=== PATIENT | male | born 1965 | race Caucasian/White ===

== ENCOUNTER → 2020-11-17 | Outpatient (CLI) | payer OTHER ==
[2020-11-17 19:03] LABS: CHLORIDE 99 MMOL/L (98-107); POTASSIUM 3.8 MMOL/L (3.6-5.0); SODIUM 142 MMOL/L (135-145)
[2020-11-17 19:04] LABS: CALCIUM 8.8 MG/DL (8.5-10.1)
[2020-11-17 19:05] LABS: GLUCOSE 123 MG/DL (70-105)
[2020-11-17 19:07] LABS: CARBON DIOXIDE 30 MMOL/L (21-32)
[2020-11-17 19:09] LABS: CREATININE SERUM 1.24 MG/DL (0.60-1.30); GFR ESTIMATED > 60
[2020-11-17 19:10] LABS: BUN/CREATININE RATIO 12
[2020-11-17 19:11] LABS: MAGNESIUM 1.6 MG/DL (1.6-2.4)
== END ==
LOC: LABNPT 18:51
DX: I13.0 Hypertensive heart and chronic kidney disease with heart failure and stage 1 through stage 4 chronic kidney disease, or unspecified chronic kidney disease (principal); N18.9 Chronic kidney disease, unspecified; I50.9 Heart failure, unspecified
CPT/HCPCS: 80048; 83735; 83880

== ENCOUNTER 2020-11-23 21:43 | Emergency (ER) | payer MEDICARE, MEDICAID ==
[~2020-11-23] VITALS: Ht 170.2 cm; Wt 150.1 kg
[2020-11-23 21:53] VITALS: BP 149/94
--- NOTE | 2020-11-23 22:05 | ED General ---
General Chief Complaint: Coughing Up Blood Stated Complaint: COUGHING UP BLOOD Nursing Triage Note: PT AMBULATE TO ROOM FS01 WITH HOME O2 WITH C/O COUGHING UP BLOOD. PT HAS A TRACH SINCE MAR 222018. PT STATES HE WAS SUCTIONING AND MAY HAVE "GONE TOO FAR". PT PRESENTED A TISSUE WITH A SMALL AMOUNT OF BLOOD THAT PT STATES HE COUGHED UP THROUGH HIS MOUTH. Nursing Sepsis Screen: No Definite Risk History of Present Illness Date Seen by Provider: November 23, 2020 Time Seen by Provider: 22:01 Initial Comments Patient reports small amount of blood from his trach. Patient reports that he was suctioning his trach and thinks he may irritated with a little bit too far. He had a tissue with just a trace amount of blood on it that he had coughed up to his mouth. He cannot have any cough at this time. Has no shortness of breath or no active bleeding currently. Patient just wanted to be checked out because he was little bit scared. Allergies and Home Medications Patient Home Medication List Home Medication List Reviewed: Yes Review of Systems Review of Systems Constitutional: No chills, No fever EENTM: see HPI Respiratory: see HPI Cardiovascular: no symptoms reported Gastrointestinal: no symptoms reported Genitourinary: no symptoms reported Musculoskeletal: no symptoms reported Skin: no symptoms reported Past Gtrgfhp-Syjvfx-Htrawn Hx Past Med/Social Hx: Reviewed Nursing Past Med/Soc Hx Patient Social History Recent Infectious Disease Expo: No Physical Exam Vital Signs Vital Signs - First Documented 11/23/20 21:53 Temp 35.5 Pulse 91 Resp 17 B/P (MAP) 149/94 (112) Pulse Ox 97 O2 Delivery Trach Collar O2 Flow Rate 5.00 Capillary Refill : Less Than 3 Seconds Height, Weight, BMI Height: '" Weight: lbs. oz. kg; 51.00 BMI Method: General Appearance: No Apparent Distress, WD/WN Neck: Other (Tracheostomy in place with no active bleeding, normal exam) Respiratory: Lungs Clear, Normal Breath Sounds Cardiovascular: Regular Rate, Rhythm, No Edema Gastrointestinal: Non Tender, Soft Extremity: Normal Capillary Refill, Normal Range of Motion Neurologic/Psychiatric: Oriented x3, No Motor/Sensory Deficits, Normal Mood/Affect Progress/Results/Core Measures Suspected Sepsis Recent Fever Within 48 Hours: No Infection Criteria Present: None New/Unexplained Altered Menta: No Sepsis Screen: No Definite Risk SIRS Temperature: Pulse: 91 Respiratory Rate: 17 Blood Pressure 149 /94 Mean: 112 Results/Orders Vital Signs/I&O 11/23/20 11/23/20 21:53 22:00 Temp 35.5 Pulse 91 Resp 17 B/P (MAP) 149/94 (112) Pulse Ox 97 O2 Delivery Trach Collar Trach Collar O2 Flow Rate 5.00 5.00 Capillary Refill : Less Than 3 Seconds Blood Pressure Mean: 112 Progress Note : Progress Note Patient with no further episodes of bleeding or coughing while here in the ER. Patient with likely some tracheal irritation following deep suctioning. Patient was stable and discharged. Departure Impression Primary Impression: Hemorrhage from tracheostomy stoma Disposition: HOME, SELF-CARE Condition: Stable Departure-Patient Inst. Referrals: SELF,CARLOS SPRAGUE (PCP/Family) Primary Care Physician Add. Discharge Instructions: Follow-up with your primary care provider as needed Return to the ER as needed All discharge instructions reviewed with patient and/or family. Voiced understanding. BREANNA RAMÍREZ DO November 23, 2020 22:05
== END 2020-11-23 22:40 | disposition home or self-care (01) ==
LOC: EDUNIT# 21:43 → ER FS 21:44
DX: J95.01 Hemorrhage from tracheostomy stoma (principal); Z99.81 Dependence on supplemental oxygen
CPT/HCPCS: 99282

== ENCOUNTER 2021-01-11 15:57 | Emergency (ER) | payer MEDICARE, MEDICAID ==
[~2021-01-11] VITALS: Ht 170 cm; Wt 145.0 kg
--- NOTE | 2021-01-11 16:19 | ED Respiratory ---
General Chief Complaint: Catheter/Drain/Tube Problems Stated Complaint: HARD TO BREATHE DUE TO TRACH / FEELS LIKE ITS [facility] Nursing Triage Note: PT PRESENTS TO ED WITH COMPLAINTS OF TRACH IRITATION AFTER HAVING IT CHANGED YESTERDAY. Source: patient Exam Limitations: no limitations History of Present Illness Date Seen by Provider: Jan 11, 2021 Time Seen by Provider: 16:17 Initial Comments Patient has a chronic tracheostomy placed at in 2019. Home care came to [facility] where he resides yesterday to replace his trach. He feels like it is too tight. He has had both Covid vaccinations and denies any shortness of breath. He is coughing a bit more than usual Timing/Duration: just prior to arrival Severity: moderate Associated Symptoms: denies symptoms Allergies and Home Medications Allergies Coded Allergies: Penicillins (Verified Allergy, Unknown, 01/11/21) Sulfa (Sulfonamide Antibiotics) (Verified Allergy, Unknown, 01/11/21) acetaminophen (Verified Allergy, Unknown, 01/11/21) cefuroxime (Verified Allergy, Unknown, 01/11/21) cephalexin (Verified Allergy, Unknown, 01/11/21) hydrochlorothiazide (Verified Allergy, Unknown, 01/11/21) hydrocodone (Verified Allergy, Unknown, 01/11/21) naproxen (Verified Allergy, Unknown, 01/11/21) piroxicam (Verified Allergy, Unknown, 01/11/21) quinapril (Verified Allergy, Unknown, 01/11/21) Patient Home Medication List Home Medication List Reviewed: Yes Review of Systems Review of Systems Constitutional: see HPI EENTM: see HPI Respiratory: no symptoms reported Cardiovascular: no symptoms reported Genitourinary: no symptoms reported Musculoskeletal: no symptoms reported Skin: no symptoms reported Psychiatric/Neurological: No Symptoms Reported Hematologic/Lymphatic: No Symptoms Reported Immunological/Allergic: no symptoms reported Past Hwausos-Fmjdkf-Mzvumb Hx Patient Social History Tobacco Use?: Yes Smoking Status: Former Smoker Use of E-Cig and/or Vaping dev: No Substance use?: No Alcohol Use?: No Pt feels they are or have been: No Immunizations Up To Date First/Initial COVID19 Vaccinat: DECEMBER 23 COVID19 Vaccine Credentialing Coordinator: MODERNA Seasonal Allergies Seasonal Allergies: Yes Past Medical History Surgery/Hospitalization HX: SX-TRACH, PMH-DM2, HYPERLIPIDEMIA, BIPOLAR, DEPRESSION, ANXIETY, COPD, HYPERTENSION, HYPOKALEMIA, GERD, Surgeries: Yes (TRACH FEB 2019, RIGHT KIDNEY REMOVAL, L ANKLE, R ANKLE, ) Appendectomy, Gallbladder, Orthopedic, Tracheostomy Respiratory: Yes Asthma Cardiac: No Neurological: No Genitourinary: No Gastrointestinal: No Musculoskeletal: Yes Fractures Endocrine: Yes Diabetes, Insulin dep HEENT: No Cancer: No Psychosocial: Yes Anxiety, Depression Integumentary: No Blood Disorders: No Physical Exam Vital Signs - First Documented 01/11/21 16:03 Temp 36.4 Pulse 85 Resp 20 B/P (MAP) 185/108 (133) Pulse Ox 95 Capillary Refill : Less Than 3 Seconds Height: '" Weight: lbs. oz. kg; 50.00 BMI Method: General Appearance: WD/WN, no apparent distress Eyes: Bilateral Eye Normal Inspection, Bilateral Eye PERRL, Bilateral Eye EOMI HEENT: PERRL/EOMI, normal ENT inspection Neck: non-tender, full range of motion, other (Tracheostomy is midline slides in and out easily. This is an uncuffed trach tube. There is no surrounding erythema swelling or soft tissue emphysema. All I did was loosen the Velcro strap around his neck and he feels like it is back to normal.) Respiratory: no respiratory distress, no accessory muscle use Gastrointestinal: normal bowel sounds, non tender Neurologic/Psychiatric: alert, normal mood/affect, oriented x 3 Skin: normal color, warm/dry Progress/Results/Core Measures Suspected Sepsis SIRS Temperature: Pulse: 85 Respiratory Rate: 20 Blood Pressure 185 /108 Mean: 133 Results/Orders Vital Signs/I&O 01/11/21 16:03 Temp 36.4 Pulse 85 Resp 20 B/P (MAP) 185/108 (133) Pulse Ox 95 Capillary Refill : Less Than 3 Seconds Blood Pressure Mean: 133 Departure Impression Primary Impression: Tracheostomy care Disposition: 01 HOME, SELF-CARE Condition: Stable Departure-Patient Inst. Decision time for Depature: 16:18 Referrals: SELF,CARLOS SPRAGUE (PCP/Family) Primary Care Physician Patient Instructions: How to Care for a Tracheostomy BRITNEY SPENCER APRN Jan 11, 2021 16:19
--- NOTE | 2021-01-11 16:56 | Diagnostic Imaging Report ---
EXAMINATION: Soft tissue neck two views. HISTORY: Tracheostomy, neck irritation. COMPARISON: None available. FINDINGS: Tracheostomy device is present. There is abundant soft tissues about the neck. No soft tissue gas is seen. Tracheostomy is not visualized on the lateral due to overlying soft tissues. IMPRESSION: 1. Tracheostomy device is present without soft tissue gas. Dictated by: Dictated on workstation # [id number]
[2021-01-11 17:07] VITALS: BP 116/96
== END 2021-01-11 17:07 | disposition home or self-care (01) ==
LOC: EDUNIT# 15:57 → ER 16:00
DX: Z43.0 Encounter for attention to tracheostomy (principal); I10 Essential (primary) hypertension; E11.9 Type 2 diabetes mellitus without complications; J44.9 Chronic obstructive pulmonary disease, unspecified; Z87.891 Personal history of nicotine dependence
CPT/HCPCS: 70360

== ENCOUNTER 2021-02-24 18:51 | Emergency (ER) | payer MEDICARE, MEDICAID ==
[~2021-02-24] VITALS: Ht 170.1 cm; Wt 152.0 kg
--- OUTSIDE RECORDS SUMMARY | 2021-02-24 19:00 | XMS REPORT | Clinical Summary ---
Author Author [facility] Organization [facility] Address Unknown Phone Unavailable Care Team Providers Care [employer] Ax Consultant Name Role Phone Dov Farr MD Unavailable Pasha Sweet MD Unavailable Braden Covarrubias DO Unavailable Jerod Canales MD PCP Source Comments Some departments are not documenting in the electronic medical record. If you d o not see the information that you expected, contact Release of Information in [facility] Information Management department at [phone] for further assistan ce in locating additional records.[facility] Allergies Comments Active Allergy Reactions Severity Noted Date Tongue Twitching Aripiprazole SEE COMMENTS Low 02/04/2019 Allergen Mcr-Mwuvn-Cezzt ANAPHYLAXIS High 03/14 Bee Cefuroxime Axetil ANAPHYLAXIS High 03/14/2016 Cephalexin ANAPHYLAXIS High 03/14/2016 Piroxicam RASH Medium 03/14/2016 Haloperidol Lactate RASH Medium 02/04/2019 Hydrochlorothiazide HIVES Medium 03/14/2016 Hydrocodone ITCHING Low 03/14/2016 Latex RASH Medium 03/22/2019 Naproxen ANAPHYLAXIS High 03/14/2016 Penicillins ANAPHYLAXIS High 03/14/2016 Quinapril RASH Medium 03/14/2016 Sulfa (Sulfonamide ITCHING Low 03/14/2016 Antibiotics) Hydrocodone-Acetaminophen ITCHING Low 02/28 Medications End Date Status Medication Sig Dispensed Refills Start Date Active mirtazapine (REMERON) 15 Take 7.5 mg 0 mg tablet by mouth at bedtime daily. Active EPINEPHrine(+) (EPIPEN) 1 Inject 0.3 mg 0 mg/mL injection pen into the (2-Pack) muscle once as needed. Inject 0.3 mg (1 Pen) into thigh if needed for anaphylactic reaction. May repeat in 5-15 minutes if needed. Active rivaroxaban (XARELTO) 10 Take 10 mg by 0 mg tablet mouth at bedtime daily. Active fluticasone (FLONASE) 50 Apply 1 spray 0 mcg/actuation nasal spray to each nostril as directed daily. Shake bottle gently before using. Active lithium carbonate Take 300 mg 0 (ESKALITH) 150 mg capsule by mouth at bedtime daily. Take with food. Active pantoprazole DR Take 40 mg by 5 (PROTONIX) 40 mg tablet mouth daily. 9 Active tiZANidine (ZANAFLEX) 4 Take 4 mg by 8 mg tablet mouth at 9 bedtime daily. Active antiseptic mucus solvent 6-12 mL by 120 mL 3 0 120 mL Tracheal Tube 9 route every 1 hour as needed. Active albuterol-ipratropium Inhale 3 mL 360 each 1 09/29 (DUO-NEB) 0.5 mg-3 mg(2.5 solution by 0 mg base)/3 mL nebulizer nebulizer as solutionIndications: directed four Chronic obstructive times daily. pulmonary disease, unspecified COPD type (HCC) Active MYRBETRIQ 25 mg Take one 60 tablet 5 tabletIndications: tablet by 0 Overactive bladder mouth twice daily. Active LEVEMIR FLEXTOUCH U-100 15 Units 0 INSULN 100 unit/mL (3 mL) twice daily. 0 injection pen Active insulin aspart U-100 Inject 6 0 (NOVOLOG FLEXPEN U-100 Units under INSULIN) 100 unit/mL (3 the skin mL) injection PEN three times daily with meals. Sliding scale Active atorvastatin (LIPITOR) 20 Take 20 mg by 0 03/01 mg tablet mouth daily. 0 Active ALLERGY RELIEF Take 180 mg 0 (FEXOFENADINE) 180 mg by mouth 0 tablet daily. Active TRADJENTA 5 mg tablet Take 5 mg by 0 03/20/20 2 mouth daily. 0 Active metFORMIN-XR (GLUCOPHAGE TAKE 1 TABLET 0 03/20 XR) 500 mg extended BY MOUTH IN 0 release tablet THE EVENING WITH AN EVENING MEAL Active GAVILAX 17 gram/dose CONSUME 1/2 0 powder CAPFUL (9 0 GRAMS) BY MOUTH MIXED WITH JUICE OR WATER ONCE DAILY Active metoprolol XL (TOPROL XL) Take one 60 tablet 11 100 mg extended release tablet by 1 tablet mouth twice daily. Active acetaminophen SR Take 1,300 mg 0 (TYLENOL) 650 mg tablet by mouth at bedtime daily. Active dilTIAZem XR (DILACOR XR) Take 180 mg 0 180 mg capsule by mouth twice daily. Active duloxetine DR (CYMBALTA) Take 120 mg 0 60 mg capsule by mouth daily. Active doxepin (SINEQUAN) 50 mg Take 50 mg by 0 capsule mouth at bedtime daily. Active linaclotide (LINZESS) 145 Take 145 mcg 0 mcg capsule by mouth daily 30 minutes before breakfast. Active ondansetron (ZOFRAN) 4 mg Take 4 mg by 0 tablet mouth every 8 hours as needed for Nausea or Vomiting. Active multivit-min/folic/vit Take 1 tablet 0 K/lycop (MEN'S by mouth MULTIVITAMIN PO) daily. Active ascorbic acid (VITAMIN C) Take 500 mg 0 500 mg tablet by mouth daily. Active cholecalciferol (VITAMIN Take 1,000 0 D) 1,000 units tablet Units by mouth daily. Active guaiFENesin LA (MUCINEX) Take 600 mg 0 600 mg tablet by mouth twice daily. Active ALPRAZolam (XANAX) 0.5 mg Take 0.5 mg 0 tablet by mouth three times daily as needed for Anxiety. Active potassium chloride SR Take 20 mEq 0 (K-DUR) 10 mEq tablet by mouth three times daily. Take with a meal and a full glass of water. Active dulaglutide (TRULICITY) Inject 1.5 mg 0 1.5 mg/0.5 mL injection under the pen skin every 7 days. ~Mondays Active bumetanide (BUMEX) 2 mg Take 2 pills 72 tablet 1 0 tablet by mouth 1 twice daily for 3 days, then take 2 pills by mouth once daily in the morning thereafter. Active spironolactone Take one 180 tablet 3 (ALDACTONE) 25 mg tablet tablet by 1 mouth twice daily. Take with food. Active Problems Problem Noted Date Solitary kidney 11/13/2020 Acute on chronic diastolic heart failure 11/11/2020 Morbid obesity 11/11/2020 Pulmonary hypertension 11/11/2020 Fluid overload 11/08/2020 Chronic heart failure with preserved ejection fractio n (HFpEF) 09/29/2020 Essential hypertension 09/29/2020 Mixed dyslipidemia 09/29/2020 Overactive bladder 12/07/2019 Last Assessment & Plan: Formatting of this note might be differ ent from the original. Discussed overactive bladder treatment options with exploration of risks, benefits and potential adverse effects of the following: -- Voiding Diary: 2-3 days, when/what/h ow much -- Bladder diet, bladder training, pelv ic floor physical therapy -- Medications: anticholinergics and be ta-3 adrenergic agonist -- Percutaneous Tibial Nerve Stimuation (PTNS) -- Botox Injections to Bladder -- Sacral nerve stimulation Discussed PTNS, bladder Botox and sacra l nerve stimulation in detail. Discussed additional diagnostic evaluat ion via urodynamics but patient reports hesitancy related to his proced ure. He believes that he may had this procedure done by an outside facil ity and had severe discomfort. He wishes to speak with physician prior to scheduling his procedure. Plan for next available appointment for overacti ve bladder management with Dr. Gupta or Dr. Garcia. All question s answered no additional concerns at this time. Plan to continue to take Myrbetriq 50 m g. Tachycardia 11/13/2019 DM (diabetes mellitus) 11/13/2019 Localized edema 11/13/2019 S/P carpal tunnel release 11/13/2019 DDD (degenerative disc disease), lumbar 11/13/2019 S/p nephrectomy 11/13/2019 Chronic venous insufficiency of lower extremity 08/01 Secondary lymphedema 08/27/2019 Tracheal hemorrhage 07/01/2019 Insomnia 05/21/2019 Overview: Formatting of this note might be differ ent from the original. He has a long history of insomnia with good response to trazodone. L ast Assessment & Plan: Formatting of this note might be differ ent from the original. - Recently transitioned off of Trazodon e and switched to Doxepin by psychiatry per patient. Patient reports benefit from Doxepin, will continue for now. Discussed risks/benefits/SE/al ternatives. - Continue Xanax on PRN basis as patien t reports benefit. Discussed risks/benefits/SE/alternatives. - Educated on sleep hygiene Sleep apnea 03/22/2019 Morbid obesity with BMI of 50.0-59.9, adult 03/22/20 19 Overview: Formatting of this note might be differ ent from the original. He has a long history of obesity with i nability to lose weight. L ast Assessment & Plan: Formatting of this note might be differ ent from the original. - Body mass index is 52.31 kg/m. Educ ated on lifestyle modifications. Chronic respiratory failure 03/08/2019 Overview: Formatting of this note might be differ ent from the original. Secondary to multiple factors including hypoventilation syndrome morbid obesity obstructive sleep apnea and dec onditioning Nocturnal pulse oximetry dated 9 on 3 L oxygen showed oxygen desaturation below 88% for 8 seconds Last Assessment & Plan: Formatting of this note might be differ ent from the original. Patient is interested in decannulation. He has never been capped before, he uses a speaking valve. We discussed abo ut the severity of his chronic respiratory failure and sleep apnea, an d that he would need to cap his trach first, if he is able to tolerate that for a while atleast for a few days, then we can talk about decannulat ion. Intolerance of continuous positive airway pressure (C PAP) ventilation 02/04/2019 Class 3 severe obesity with serious comorbidity and b celina mass index (BMI) 02/04/2019 of 45.0 to 49.9 in adult Last Assessment & Plan: Formatting of this note might be differ ent from the original. Weight loss strongly encouraged as fpc option. The benefits of weight loss in the setting of sleep apnea were discussed. He also likely has chronic respiratory failure secondary t o OHS. PAYAM (obstructive sleep apnea) 03/14/2016 Overview: Formatting of this note might be differ ent from the original. PSG 04/10/2016 AHI 79.6/ REM 0/ Supine 0 Oxygenation low 76, below 88% 99.6 susan natali CPAP intolerant Tracheostomy scheduled 03/22/2019 L ast Assessment & Plan: Formatting of this note might be differ ent from the original. If he does consider decanulation, he wi ll need to be put back a CPAP, for this he will need another sleep study. He is currently not decided as to what he wants to do, he will decide and let us know. Advised in person follow up in 3 months Major depressive disorder 03/14/2016 Overview: Formatting of this note might be differ ent from the original. He has a long history of depression and was just discharged from [place] inpatient unit in [facility]. L ast Assessment & Plan: Formatting of this note might be differ ent from the original. He will continue his Cymbalta and Trazo done at current doses. He is not suicidal at this time. Chronic kidney disease Encounters Care Team Description Date Type Specialty Karin Madsen MD Das Ireland, Monisha, MBBS PAYAM (obstructive sleep apnea) (Primary D x); Chronic respiratory failure with hypoxia and hypercapnia (HCC) 02/13/2021 Office Visit Pulmonology Telehealth Pasha Sweet MD Other 12/29/2020 Telephone Otolaryngology Karin Madsen MD Other 12/05/2020 Telephone Pulmonology Low Conn DO New Patient 11/29/2020 Telephone Oncology Pavan Dia LPN Medication Refill 11/29/2020 Refill Cardiology Karin Clemens, PSYCHOLOGY INSTRUCTOR-MEDICAL PARASITOLOGIST CHF (follow up) 2020 Office Visit Cardiology Telehealth from Last 3 Months Immunizations Name Administration Dates Next Due Flu Vaccine =>6 Months 03/25/2019 Quadrivalent PF Surgical History Surgery Date Site/Laterality Comments HX CHOLECYSTECTOMY 06/30/2003 - 06/29/2004 NEPHRECTOMY 06/30/1980 - Right 06/29/1981 HX APPENDECTOMY 06/30/1980 - 06/29/1981 TONSILLECTOMY 06/30/1972 - 06/29/1973 ANKLE FUSION Bilateral hardware insert ed left ankle/right ankle bone spur ANKLE SURGERY Bilateral SHOULDER ARTHROPLASTY 06/30/2010 - Left 06/29/2011 COLONOSCOPY 06/30/2018 - 06/29/2019 TRACHEOSTOMY 03/22/2019 Neck/N/A TRACHEOSTOMY FE NESTRATION PROCEDURE WITH SKIN FLAP performed by Pasha Sweet Jr., MD at [facility] OR/Periop Medical History Medical History Date Comments Hypertension Pneumonia Blood clot in vein Both Legs PAYAM (obstructive sleep apnea) no CPAP cannot tolera te On supplemental oxygen by nasal 2-2.5L/ NC during t he day and 3L/NC at HS cannula Anticoagulated Xarelto Asthma Chronic respiratory failure (HCC) DM (diabetes mellitus) ([facility]) 2017 PONV (postoperative nausea and vomiting) Acid reflux Anxiety and depression Chronic kidney disease Rash of body abdominal rash Heart palpitations Edema of both lower extremities due to peripheral venous insufficiency DVT of leg (deep venous thrombosis) 2014 JAZZMINE ([facility]) BMI 50.0-59.9, adult ([facility]) Tobacco abuse Former tobacco use Tachycardia 11/13/2019 Localized edema 11/13/2019 S/P carpal tunnel release 11/13/2019 DDD (degenerative disc disease), 11/13/2019 lumbar S/p nephrectomy 11/13/2019 Family History Medical History Relation Name Comments Unknown to Patient Father Diabetes Mother Hypertension Mother Unknown to Patient Mother None Reported Sister Relation Name Status Comments Father Mother Sister Social History Date Tobacco Use Types Packs/Day Years Used Former Smoker Cigarettes 0.5 5 Smokeless Tobacco: Never Used Tobacco Cessation: Counseling Given: Yes Comments Alcohol Use Standard Drinks/Week No 0 (1 standard drink = 0.6 o z pure alcohol) Sex Assigned at Date Recorded Male 10/14/2019 10:40 AM CDT Last Filed Vital Signs Reading Time Taken Comments Vital Sign 142/90 11/11/2020 11:04 AM CDT pt sitting up, R N notified. Blood Pressure 81 11/11/2020 11:04 AM CDT Pulse 36.7 C (98 F) 11/11/2020 11:04 AM CDT Temperature 18 05/30/2020 3:50 PM QUALITY ASSURANCE TESTER Respiratory Rate 96% 11/11/2020 12:45 PM CDT Oxygen Saturation - - Inhaled Oxygen Concentration 153.3 kg (338 lb) 02/13/2021 7:40 AM CDT Weight 170.2 cm (5' 7") 02/13/2021 7:40 AM CDT Height 52.94 02/13/2021 7:40 AM CDT Body Mass Index Plan of Treatment Health Maintenance Due Date Last Done Comments MEDICARE ANNUAL WELLNESS 1965 VISIT HIV SCREENING 11/27/1982 DILATED EYE EXAM 11/27/1985 DTAP/TDAP VACCINES (1 - 11/27/1985 Tdap) FOOT EXAM 11/27/1985 HBA1C 11/27/1985 HEPATITIS C SCREENING 11/27/1985 MICROALBUMIN 11/27/1985 PHYSICAL (COMPREHENSIVE) 11/27/1985 EXAM PNEUMONIA VACCINE (DM) 11/27/1985 COLORECTAL CANCER 11/27/2017 SCREENING SHINGLES RECOMBINANT 11/27/2017 VACCINE (1 of 2) INFLUENZA VACCINE 03/30/2021 03/25/2019, 06/15/2009 Goals Goal Patient Associated Recent Progress Patient-Stat Aut hor Goal Type Problems ed? Weight Loss Exercise Yes Delaney Jauregui, RN Note: "Lose some weight and get more healthy" [facility] No Cristina Jansen, DANNY Note: Get home to my dog Results Not on filefrom Last 3 Months Insurance Type Payer Benefit Subscriber ID Effective Phone Address Plan / Dates Group Medicare MEDICARE MEDICARE [id number] 2005- PART A AND Present B Medicaid [employer] [place] [employer] [id number] 2019-P [facility] BILLING HOSPICE/HO [id number] 03/22/2019 - ME Present HEALTH/SNF /RETIREMENT Advance Directives Patient Fur Sorter Explanation Type Date Recorded DPOA Advance 03/12/2019 11:01 AM Directive/DPOA Date Inactivated Comments Code Status Date Activated 11/11/2020 8:50 PM Full Code 11/08/2020 2:52 PM Provider has discussed Code Status No, discussion no t w/Patient or Family? necessary based on Dx 11/08/2020 2:52 PM Full Code 11/08/2020 9:24 AM Provider has discussed Code Status No, discussion no t w/Patient or Family? necessary based on Dx 03/26/2019 8:35 PM Full Code 03/22/2019 2:23 PM Provider has discussed Code Status No, discussion no t w/Patient or Family? necessary based on Dx
--- OUTSIDE RECORDS SUMMARY | 2021-02-24 19:00 | XMS REPORT | Clinical Summary ---
Author Author [facility] Address Unknown Phone Unavailable Care Team Providers Care Sports Announcer Name Role Phone Price Vo MD PCP Allergies Comments Active Allergy Reactions Severity Noted Date Bee Venom Anaphylaxis High 08/18/2013 Cefuroxime Rash Low 08/18/2013 Cephalexin Rash Low 02/10/2015 Piroxicam Rash Low 08/18/2013 Hydrochlorothiazide Rash Low 08/18/2013 Naproxen Rash Low 08/18/2013 Penicillins Anaphylaxis High 08/18/2013 Quinapril-Hydrochlorothia Rash Low 07/31 zide Sulfa Antibiotics Rash Low 08/18/2013 Hydrocodone-Acetaminophen Rash Low 07/31 Medications End Date Status Medication Sig Dispensed Refills Start Date Active carvedilol (COREG) 25 MG Take 6.25 mg 0 tablet by mouth 2 (two) times daily with meals. Active furosemide (LASIX) 80 MG Take 80 mg by 0 tablet mouth 2 (two) times daily. Morning and Noon Active potassium chloride SA Take 20 mEq 0 (K-DUR,KLOR-CON) 20 MEQ by mouth 3 tablet (three) times daily. Breakfast, lunch, dinner Active nitroglycerin Place 0.4 mg 0 (NITROQUICK) 0.4 MG SL under the tablet tongue every 5 (five) minutes as needed. Active omeprazole (PRILOSEC) 20 Take 20 mg by 0 MG capsule mouth 2 (two) times daily. Active Pediatric Take 1 tablet 0 Qsgqyyvu-Wqupocrf-R by mouth (MULTIVITAMIN/IRON) CHEW daily. Active colesevelam (WELCHOL) 625 Take 625 mg 0 MG tablet by mouth 2 (two) times daily with meals. Active EPINEPHrine (EPIPEN) 0.3 Inject 0.3 mg 0 MG/0.3 ML SOAJ injection into the muscle once. Active traZODone (DESYREL) 100 Take 2 60 tablet 0 MG tabletIndications: tablets (200 4 Anxiety Disorder, mg total) by Insomnia mouth nightly. Indications: Anxiety Disorder, Trouble Sleeping Additional Information Patient taking differently: 300 mg Oral BEDTIME, Indications: Anxiety Disorder, Insomnia, Reported on 02/10/2015 Active duloxetine (CYMBALTA) 60 Take 60 mg by 0 MG capsule mouth daily. Active FLUoxetine (PROZAC) 20 MG Take 20 mg by 0 capsule mouth daily. Active ALPRAZolam (XANAX) 0.25 Take 0.25 mg 0 MG tabletIndications: by mouth 3 Agitation, Anxiety, (three) times Insomnia daily. Scheduled for 0900, 1500, 2100. Indications: Agitation, Feeling Anxious, Trouble Sleeping Active fluticasone (FLONASE) 50 1 spray by 0 MCG/ACT nasal Each Nare sprayIndications: route 2 (two) Seasonal Allergic times daily. Rhinitis Indications: Hayfever Active loratadine (CLARITIN) 10 Take 10 mg by 0 MG tabletIndications: mouth daily. Seasonal Allergic Indications: Rhinitis Hayfever Active ARIPiprazole (ABILIFY) 5 Take 1 tablet 30 tablet 0 MG tabletIndications: (5 mg total) 5 Major Depressive Disorder by mouth daily. Indications: Major Depressive Disorder Active prazosin (MINIPRESS) 2 MG Take 1 30 capsule 0 capsuleIndications: capsule (2 mg 5 suppress nightmares total) by mouth nightly. Indications: suppress nightmares Active Problems Problem Noted Date Mood disorder 03/02/2014 Severe major depression, single episode, with psychot ic features, 08/20/2013 mood-incongruent Resolved Problems Problem Noted Date Resolved Date Psychosis 03/03/2014 03/07/2014 Suicidal ideation 08/19/2013 03/07/2014 Mood disorder 08/18/2013 08/20/2013 Immunizations Name Administration Dates Next Due Influenza IIV3 PFree 02/28/2013 Pneumococcal 02/28/2013 Polysaccharide (23-valent) Social History Date Tobacco Use Types Packs/Day Years Used Former Smoker Smokeless Tobacco: Never Used Comments Alcohol Use Standard Drinks/Week occasionally No 0 (1 standard drink = 0.6 o z pure alcohol) Control Partners Comments Sexually Active Never Sex Assigned at Date Recorded Not on file Last Filed Vital Signs Reading Time Taken Comments Vital Sign 120/82 02/13/2015 1:56 PM CDT Blood Pressure 99 02/13/2015 1:56 PM CDT Pulse 37.2 C (99 F) 02/13/2015 1:56 PM CDT Temperature 20 02/13/2015 1:56 PM CDT Respiratory Rate 97% 02/12/2015 3:00 PM CDT Oxygen Saturation - - Inhaled Oxygen Concentration 138.8 kg (306 lb) 02/10/2015 8:43 PM CDT Weight 170.2 cm (5' 7") 02/10/2015 8:43 PM CDT Height 47.93 02/10/2015 8:43 PM CDT Body Mass Index Plan of Treatment Health Maintenance Due Date Last Done Comments COVID-19 Vaccine (1) 1979 Annual Wellness Visit 11/27/1985 Hepatitis C Screening 11/27/1985 DTaP,Tdap,and Td Vaccines 11/27/1986 (1 - Tdap) MMR Vaccines-Adult 11/27/1986 Colon Cancer Screening 11/27/2017 Zoster Vaccine (1 of 2) 11/27/2017 Influenza Vaccine (#1) 2021 02/28/2013 Pneumo-Vaccine: 65+Yrs (1 11/27/2032 02/28/2013 of 1 - PPSV23) Pneumo-Vaccine: Peds (0-5 Aged Out 02/28/2013 No l onger eligible based on patient's age to Yrs) & At-Risk Patients complete this topic (6-64 Yrs) HIB Vaccines Aged Out No longer eligible based on patient's age to complete this topic IPV Vaccines Aged Out No longer eligible based on patient's age to complete this topic Meningococcal Vaccine Aged Out No longer eligib le based on patient's age to complete this topic Rotavirus Vaccines Aged Out No longer eligible based on patient's age to complete this topic Results Not on filefrom Last 3 Months Insurance Type Payer Benefit Subscriber ID Effective Phone Address Plan / Dates Group Medicare MEDICARE MEDICARE [id number] 2005- [address] Present [address] [place] [address] Advance Directives For more information, please contact: [phone] Date Inactivated Comments Code Status Date Activated 02/13/2015 3:14 PM Full Code 02/10/2015 10:56 PM 03/07/2014 1:44 PM Full Code 03/02/2014 11:57 PM 08/23/2013 4:24 PM Full Code 08/18/2013 9:26 PM Care Teams Start Date End Date Sports Announcer Relationship Specialty 08/18/13 Price Vo MD PCP - General [address] [place] [id number]
--- OUTSIDE RECORDS SUMMARY | 2021-02-24 19:00 | XMS REPORT | Encounter Summary ---
Author Author [facility] Organization [facility] Address Unknown Phone Unavailable Care Team Providers Care Ortho Assistant Name Role Phone Dov Farr MD Unavailable Pasha Sweet MD Unavailable Braden Covarrubias DO Unavailable Jerod Canales MD PCP Reason for Visit * Reason Comments Sleep Apnea Encounter Details Care Team Description Date Type Department Karin Madsen MD [address] [facility] Lvl 1 A-B [place], [place] [id number] Gaby Kelley MBBS [address] [place], [place] [id number] PAYAM (obstructive sleep apnea) (Primary D x); Chronic respiratory failure with hypoxia and hypercapnia (HCC) 02/13/2021 Office Visit Pulmonology: Shimon menon, [facility] [address], [address] [address] Social History Date Tobacco Use Types Packs/Day Years Used Former Smoker Cigarettes 0.5 5 Smokeless Tobacco: Never Used Comments Alcohol Use Standard Drinks/Week No 0 (1 standard drink = 0.6 o z pure alcohol) Sex Assigned at Date Recorded Male 10/14/2019 10:40 AM CDT documented as of this encounter Last Filed Vital Signs Reading Time Taken Comments Vital Sign - - Blood Pressure - - Pulse - - Temperature - - Respiratory Rate - - Oxygen Saturation - - Inhaled Oxygen Concentration 153.3 kg (338 lb) 02/13/2021 7:40 AM CDT Weight 170.2 cm (5' 7") 02/13/2021 7:40 AM CDT Height 52.94 02/13/2021 7:40 AM CDT Body Mass Index documented in this encounter Functional Status Date of Assessment Functional Status Response 11/02/2020 Does the patient have a hearing impairment: No 11/02/2020 Does the patient have a visual impairment: Yes 11/02/2020 Does the patient have impaired ambulation: Yes 11/02/2020 Does the patient have an activity of daily living No (ADL) impairment: 11/02/2020 Does the patient have an instrumental activity of No daily living (IADL) impairment: Date of Assessment Cognitive Status Response 11/02/2020 Does the patient have a cognitive impairment: No documented as of this encounter Progress Notes * Gaby Kelley MBBS - 02/13/2021 9:00 AM CDT Telehealth Visit Note Date of Service: 02/13/2021 Subjective: Obtained patient's verbal consent to treat them and their agreement to [facility] policy and NPP via this telehealth visit during the Coronavirus Public [facility] Emergency Conor Juan David Robbins is a 55 y.o. male. History of Present Illness Mr. Robbins is a 54 yo M with PMH HTN, HLD, CKD, DM2, asthma, COPD, chronic respir atory failure, DVT on AC, anxiety, depression, acid reflux, former tobacco use, severe PAYAM s/p tracheostomy, insomnia, DDD, morbid obesity who presents to [facility] for PAYAM and chronic respiratory failure follow up. He is here to discuss decannulation due to home situation and that he wants to b e able to go out and do things and not be attached to his machine. No recent bronchitis Currently using 4-5 L O2 through trach mask. Does have a chronic cough with clear phlegm. He states that he uses speaking valve but has never capped his trach. Review of Systems Constitutional: Positive for fatigue. HENT: Negative. Respiratory: Positive for cough and shortness of breath. Cardiovascular: Negative. Musculoskeletal: Positive for arthralgias. Skin: Negative. Neurological: Negative. Psychiatric/Behavioral: Negative. Objective: acetaminophen SR (TYLENOL) 650 mg tablet Take 1,300 mg by mouth at bedtime d aily. albuterol-ipratropium (DUO-NEB) 0.5 mg-3 mg(2.5 mg base)/3 mL nebulizer solu tion Inhale 3 mL solution by nebulizer as directed four times daily. ALLERGY RELIEF (FEXOFENADINE) 180 mg tablet Take 180 mg by mouth daily. ALPRAZolam (XANAX) 0.5 mg tablet Take 0.5 mg by mouth three times daily as n eeded for Anxiety. antiseptic mucus solvent 120 mL 6-12 mL by Tracheal Tube route every 1 hour as needed. ascorbic acid (VITAMIN C) 500 mg tablet Take 500 mg by mouth daily. atorvastatin (LIPITOR) 20 mg tablet Take 20 mg by mouth daily. bumetanide (BUMEX) 2 mg tablet Take 2 pills by mouth twice daily for 3 days, then take 2 pills by mouth once daily in the morning thereafter. cholecalciferol (VITAMIN D) 1,000 units tablet Take 1,000 Units by mouth christina ly. dilTIAZem XR (DILACOR XR) 180 mg capsule Take 180 mg by mouth twice daily. doxepin (SINEQUAN) 50 mg capsule Take 50 mg by mouth at bedtime daily. dulaglutide (TRULICITY) 1.5 mg/0.5 mL injection pen Inject 1.5 mg under the skin every 7 days. ~Mondays duloxetine DR (CYMBALTA) 60 mg capsule Take 120 mg by mouth daily. EPINEPHrine(+) (EPIPEN) 1 mg/mL injection pen (2-Pack) Inject 0.3 mg into th e muscle once as needed. Inject 0.3 mg (1 Pen) into thigh if needed for anaphyla ctic reaction. May repeat in 5-15 minutes if needed. fluticasone (FLONASE) 50 mcg/actuation nasal spray Apply 1 spray to each nos tril as directed daily. Shake bottle gently before using. GAVILAX 17 gram/dose powder CONSUME 1/2 CAPFUL (9 GRAMS) BY MOUTH MIXED WITH JUICE OR WATER ONCE DAILY guaiFENesin LA (MUCINEX) 600 mg tablet Take 600 mg by mouth twice daily. insulin aspart U-100 (NOVOLOG FLEXPEN U-100 INSULIN) 100 unit/mL (3 mL) inje ction PEN Inject 6 Units under the skin three times daily with meals. Sliding sc mor LEVEMIR FLEXTOUCH U-100 INSULN 100 unit/mL (3 mL) injection pen 15 Units twi ce daily. linaclotide (LINZESS) 145 mcg capsule Take 145 mcg by mouth daily 30 minutes before breakfast. lithium carbonate (ESKALITH) 150 mg capsule Take 300 mg by mouth at bedtime daily. Take with food. metFORMIN-XR (GLUCOPHAGE XR) 500 mg extended release tablet TAKE 1 TABLET BY MOUTH IN THE EVENING WITH AN EVENING MEAL metoprolol XL (TOPROL XL) 100 mg extended release tablet Take one tablet by mouth twice daily. mirtazapine (REMERON) 15 mg tablet Take 7.5 mg by mouth at bedtime daily. multivit-min/folic/vit K/lycop (MEN'S MULTIVITAMIN PO) Take 1 tablet by mout h daily. MYRBETRIQ 25 mg tablet Take one tablet by mouth twice daily. ondansetron (ZOFRAN) 4 mg tablet Take 4 mg by mouth every 8 hours as needed for Nausea or Vomiting. pantoprazole DR (PROTONIX) 40 mg tablet Take 40 mg by mouth daily. potassium chloride SR (K-DUR) 10 mEq tablet Take 20 mEq by mouth three times daily. Take with a meal and a full glass of water. rivaroxaban (XARELTO) 10 mg tablet Take 10 mg by mouth at bedtime daily. spironolactone (ALDACTONE) 25 mg tablet Take one tablet by mouth twice daily . Take with food. tiZANidine (ZANAFLEX) 4 mg tablet Take 4 mg by mouth at bedtime daily. TRADJENTA 5 mg tablet Take 5 mg by mouth daily. Vitals: 02/13/21 0740 Weight: (!) 153.3 kg (338 lb) Height: 170.2 cm (67") PainSc: Zero Body mass index is 52.94 kg/m. Telehealth Patient Reported Vitals Row Name 02/13/21 0740 Pain Score Zero Physical Exam Not done due to this being a tele visit Assessment and Plan: Problem Chronic Respiratory Failure (Hcc) Secondary to multiple factors including hypoventilation syndrome morbid obesity obstructive sleep apnea and deconditioning Nocturnal pulse oximetry dated 05/07/2019 on 3 L oxygen showed oxygen desaturatio n below 88% for 8 seconds Payam (Obstructive Sleep Apnea) PSG 04/10/2016 AHI 79.6/ REM 0/ Supine 0 Oxygenation low 76, below 88% 99.6 minutes CPAP intolerant Tracheostomy scheduled 03/22/2019 Chronic respiratory failure (HCC) Patient is interested in decannulation. He has never been capped before, he uses a speaking valve. We discussed about the severity of his chronic respiratory fa ilure and sleep apnea, and that he would need to cap his trach first, if he is a ble to tolerate that for a while atleast for a few days, then we can talk about decannulation. PAYAM (obstructive sleep apnea) If he does consider decanulation, he will need to be put back a CPAP, for this h e will need another sleep study. He is currently not decided as to what he wants to do, he will decide and let us know. Advised in person follow up in 3 months 30 minutes spent on this patient's encounter with counseling and coordination of care taking >50% of the visit. Gaby Sahni Sleep Fellow ATTESTATION I personally performed the zarate portions of the E/M visit, discussed case with Dr Jorge A Sahni and concur with documentation of history, physical exam, assessment, a nd treatment plan unless otherwise noted. I again explained to him he is not a candidate for decannulation given he has severe PAYAM and remains CPAP intolerant. Staff name: Dov Farr MD Date: 02/13/2021 * Jesica Johnson MA - 02/13/2021 9:00 AM CDT Did patient read financial policy, consent to treat, and notice of privacy pract ices? Yes Does the patient give verbal consent to each policy? Yes Does the patient have any vitals to report? Yes Weight Vitals charted in O2? Yes Is the patient in pain? 0 = No pain Screening questions completed? Yes Is the patient able to acces the [employer] message with the start visit link? Yes Is patient in "virtual waiting room" No documented in this encounter Plan of Treatment Not on filedocumented as of this encounter Goals Goal Patient Associated Recent Progress Patient-Stat Aut hor Goal Type Problems ed? Weight Loss Exercise Yes Delaney Jauregui, RN Note: "Lose some weight and get more healthy" [facility] No Cristina Jansen RN Note: Get home to my dog documented as of this encounter Visit Diagnoses Diagnosis PAYAM (obstructive sleep apnea) - Primary Obstructive sleep apnea (adult) (pediat christian) Chronic respiratory failure with hypoxi a and hypercapnia (HCC) * Assessment & Plan Note - Gaby Kelley MBBS - 02/13/2021 9:34 AM CDT Associated Problem(s): PAYAM (obstructive sleep apnea) If he does consider decanulation, he will need to be put back a CPAP, for this h e will need another sleep study. He is currently not decided as to what he wants to do, he will decide and let us know. Advised in person follow up in 3 months * Assessment & Plan Note - Gaby Kelley MBBS - 02/13/2021 9:31 AM CDT Associated Problem(s): Chronic respiratory failure (HCC) Patient is interested in decannulation. He has never been capped before, he uses a speaking valve. We discussed about the severity of his chronic respiratory fa ilure and sleep apnea, and that he would need to cap his trach first, if he is a ble to tolerate that for a while atleast for a few days, then we can talk about decannulation. documented in this encounter Additional Health Concerns Assessment Noted Time PHQ-9 Depression Total Score: 0 03/08/2019 12:35 PM CDT A fall risk assessment has been completed for the pat ient 02/13/2021 7:43 AM CDT A Body Mass Index follow-up plan has been documented for the patient 08/04/2020 11:41 AM SALES TRADER PHQ-2 Depression Total Score: 2 02/13/2021 7:42 AM CDT documented as of this encounter
--- OUTSIDE RECORDS SUMMARY | 2021-02-24 19:00 | XMS REPORT | Clinical Summary ---
Author Author [facility] Organization [facility] Address Unknown Phone Unavailable Care Team Providers Care Provider Engagement Executive Name Role Phone Jasen Bro MD PCP Allergies Not on File Medications Not on file Active Problems Not on file Social History Date Tobacco Use Types Packs/Day Years Used Never Assessed Sex Assigned at Date Recorded Not on file Last Filed Vital Signs Not on file Plan of Treatment Not on file Results Not on filefrom Last 3 Months Insurance Type Payer Benefit Subscriber ID Effective Phone Address Plan / Dates Group Medicare MEDICARE MEDICARE [id number] 2018-P [place] [address] [place] [address] [place], [place] CIGNA CIGNA [id number] 2018-P [place] MEDICA[place] MANAGED CARE [employer] [id number] 2018 -P ([place]) [facility]
--- OUTSIDE RECORDS SUMMARY | 2021-02-24 19:00 | XMS REPORT | Encounter Summary ---
Author Author [facility] Organization [facility] Address Unknown Phone Unavailable Care Team Providers Care Historian Dramatic Arts Name Role Phone Dov Farr MD Unavailable Pasha Sweet MD Unavailable Braden Covarrubias DO Unavailable Jerod Canales MD PCP Reason for Visit * Reason Onset Date Comments Other 12/29/2020 Encounter Details Care Team Description Date [place] [id number] [address] [facility] [address] [place] [address] Other 12/29/2020 Telephone Otolaryngology: [address] [place] [address] Social History Date Tobacco Use Types Packs/Day Years Used Former Smoker Cigarettes 0.5 5 Smokeless Tobacco: Never Used Drinks/Week oz/Week Comments Alcohol Use 0 Standard drinks or equivalent 0.0 No Sex Assigned at Date Recorded Male 10/14/2019 10:40 AM CDT documented as of this encounter Functional Status Date of Assessment [...] impairment: No documented as of this encounter Miscellaneous Notes * Telephone Encounter - Mimi Hernandez LPN - 01/02/2021 11:[address] Sweet standard protocol, this nurse contacted patient's home health nurse at [facility] and provided continued orders for Tracheostomy changes every 3 months or PRN for complications. * Telephone Encounter - Ariel Yost - 12/29/2020 8:56 AM CDT Calling to reach nurse. Needing orders for home health agency. And how often to change trach. documented in this encounter Plan of Treatment Not on filedocumented as of this encounter Goals Goal Patient Associated Recent Progress Patient-Stat Aut hor Goal Type Problems ed? Weight Loss Exercise Yes Delaney Jauregui, RN Note: "Lose some weight and get more healthy" [facility] Cristina Jansen, DANNY Note: Get home to my dog documented as of this encounter Visit Diagnoses Not on filedocumented in this encounter Additional Health Concerns Assessment Noted Time PHQ-9 Depression Total Score: 0 03/08/2019 12:35 PM CDT A fall risk assessment has been completed for the pat ient 11/11/2020 9:00 AM CDT A Body Mass Index follow-up plan has been documented for the patient 08/04/2020 11:41 AM STUDENT SUCCESS COUNSELOR PHQ-2 Depression Total Score: 0 09/29/2020 8:22 AM CDT documented as of this encounter
[2021-02-24 20:42] LABS: BASOPHILS # (AUTO) 0.1 10^3/uL (0.0-0.1); BASOPHILS % (AUTO) 1 % (0-10); EOSINOPHILS # (AUTO) 0.5 10^3/uL (0.0-0.3); EOSINOPHILS % (AUTO) 5 % (0-10); HEMATOCRIT 37 % (40-54); HEMOGLOBIN 11.8 g/dL (13.3-17.7); LYMPHOCYTES # (AUTO) 2.3 10^3/uL (1.0-4.0); LYMPHOCYTES % (AUTO) 24 % (12-44); MEAN CORPUSCULAR HEMOGLOBIN 31 pg (25-34); MEAN CORPUSCULAR HGB CONC 32 g/dL (32-36); MEAN CORPUSCULAR VOLUME 95 fL (80-99); MEAN PLATELET VOLUME 9.2 fL (9.0-12.2); MONOCYTES # (AUTO) 0.8 10^3/uL (0.0-1.0); MONOCYTES % (AUTO) 8 % (0-12); NEUTROPHILS % (AUTO) 62 % (42-75); PLATELET COUNT 240 10^3/uL (130-400); WHITE BLOOD COUNT 9.6 10^3/uL (4.3-11.0)
[2021-02-24 20:52] LABS: ALBUMIN 4.2 GM/DL (3.2-4.5); POTASSIUM 4.4 MMOL/L (3.6-5.0)
[2021-02-24 20:53] LABS: CALCIUM 9.4 MG/DL (8.5-10.1)
[2021-02-24 20:55] LABS: TOTAL PROTEIN 7.5 GM/DL (6.4-8.2)
[2021-02-24 20:56] LABS: BILIRUBIN,TOTAL 0.3 MG/DL (0.1-1.0)
[2021-02-24 20:58] LABS: CREATININE SERUM 1.14 MG/DL (0.60-1.30)
--- NOTE | 2021-02-24 21:56 | Diagnostic Imaging Report ---
INDICATION: Shortness of air. TECHNIQUE: Single view chest 9:13 PM. CORRELATION STUDY: None. FINDINGS: Tracheostomy tube tip projects interposed between the clavicles over the trachea. Heart size enlarged, mediastinum prominent. Vasculature is increased. No definitive consolidating infiltrate. Probable small right pleural effusion. IMPRESSION: Cardiac enlargement and prominent mediastinum along with what appears to be pulmonary vascular congestion. Mediastinal prominence of unknown etiology or significance. Dictated by: Dictated on workstation # [id number]
--- NOTE | 2021-02-24 22:20 | ED General ---
General Chief Complaint: Respiratory Problems Stated Complaint: SOB,FLUID BUILD UP Nursing Triage Note: Pt ambulatory into ER with complaint of SOA x1 week. Pt states that its slowly worsened over the last few days. Pt seen at [facility] just prior to coming to ER and was swabbed for covid. Negative results. Pt was told to go to ER. Source of Information: Patient Exam Limitations: No Limitations History of Present Illness Date Seen by Provider: Feb 24, 2021 Time Seen by Provider: 19:17 Initial Comments This 55-year-old gentleman with tracheostomy presents to the emergency room with complaints of shortness of breath, fatigue, and "fluid buildup". He has COPD with shortness of air and recent increased cough. He denies any fever. He had a COVID swab at [facility] just prior to coming to ER and reports it was negative. Allergies and Home Medications Allergies Coded Allergies: Penicillins (Verified Allergy, Unknown, 01/11/21) Sulfa (Sulfonamide Antibiotics) (Verified Allergy, Unknown, 01/11/21) acetaminophen (Verified Allergy, Unknown, 01/11/21) cefuroxime (Verified Allergy, Unknown, 01/11/21) cephalexin (Verified Allergy, Unknown, 01/11/21) hydrochlorothiazide (Verified Allergy, Unknown, 01/11/21) hydrocodone (Verified Allergy, Unknown, 01/11/21) naproxen (Verified Allergy, Unknown, 01/11/21) piroxicam (Verified Allergy, Unknown, 01/11/21) quinapril (Verified Allergy, Unknown, 01/11/21) Patient Home Medication List Home Medication List Reviewed: Yes Review of Systems Review of Systems Constitutional: see HPI EENTM: no symptoms reported Respiratory: see HPI Cardiovascular: see HPI, edema Gastrointestinal: no symptoms reported Genitourinary: no symptoms reported Musculoskeletal: no symptoms reported Skin: no symptoms reported Psychiatric/Neurological: No Symptoms Reported Hematologic/Lymphatic: No Symptoms Reported Immunological/Allergic: no symptoms reported Past Eyamgaq-Pxisub-Nasamc Hx Patient Social History Tobacco Use?: No Smoking Status: Former Smoker Use of E-Cig and/or Vaping dev: No Substance use?: No Alcohol Use?: No Immunizations Up To Date Influenza Vaccine Up-to-Date: No; Not Current Second COVID19 Vaccination Dhruv: DECEMBER 23 COVID19 Vaccine Urology Nurse: Yady Seasonal Allergies Seasonal Allergies: Yes Past Medical History Surgery/Hospitalization HX: SX-TRACH, PMH-DM2, HYPERLIPIDEMIA, BIPOLAR, DEPRESSION, ANXIETY, COPD, HYPERTENSION, HYPOKALEMIA, GERD, Surgeries: Yes (TRACH FEB 2019, RIGHT KIDNEY REMOVAL, L ANKLE, R ANKLE, ) Appendectomy, Gallbladder, Orthopedic, Tracheostomy Respiratory: Yes Asthma Cardiac: Yes High Cholesterol, Hypertension Neurological: No Genitourinary: No Gastrointestinal: Yes Gastroesophageal Reflux Musculoskeletal: Yes Fractures Endocrine: Yes Diabetes, Insulin dep HEENT: No Cancer: No Psychosocial: Yes Anxiety, Bipolar, Depression Integumentary: No Blood Disorders: No Physical Exam Vital Signs Vital Signs - First Documented 02/24/21 20:21 Temp 36.8 Pulse 87 Resp 24 B/P (MAP) 175/96 (122) Pulse Ox 95 O2 Delivery Room Air Capillary Refill : Less Than 3 Seconds Height, Weight, BMI Height: '" Weight: lbs. oz. kg; 52.00 BMI Method: General Appearance: No Apparent Distress, WD/WN, Obese HEENT: PERRL/EOMI, Normal ENT Inspection Neck: Other (Tracheostomy in place with no inflammatory changes or abnormal secretions.) Respiratory: No Accessory Muscle Use, Decreased Breath Sounds, Wheezing (Mild) Cardiovascular: Regular Rate, Rhythm, No Murmur, Other (firm edema) Gastrointestinal: Normal Bowel Sounds, Non Tender Extremity: Pedal Edema, Swelling Neurologic/Psychiatric: Alert, Oriented x3, No Motor/Sensory Deficits, Normal Mood/Affect Skin: Normal Color, Warm/Dry Progress/Results/Core Measures Suspected Sepsis SIRS Temperature: Pulse: 87 Respiratory Rate: 24 Laboratory Tests 02/24/21 20:32: White Blood Count 9.6 Blood Pressure 175 /96 Mean: 122 Laboratory Tests 02/24/21 20:32: Creatinine 1.14, Platelet Count 240, Total Bilirubin 0.3 Results/Orders Lab Results Laboratory Tests Test 02/24/21 20:32 Range/Units White Blood Count 9.6 4.3-11.0 10^3/uL Red Blood Count 3.87 L 4.30-5.52 10^6/uL Hemoglobin 11.8 L 13.3-17.7 g/dL Hematocrit 37 L 40-54 % Mean Corpuscular Volume 95 80-99 fL Mean Corpuscular Hemoglobin 31 25-34 pg Mean Corpuscular Hemoglobin Concent 32 32-36 g/dL Red Cell Distribution Width 15.4 H 10.0-14.5 % Platelet Count 240 130-400 10^3/uL Mean Platelet Volume 9.2 9.0-12.2 fL Immature Granulocyte % (Auto) 1 % Neutrophils (%) (Auto) 62 42-75 % Lymphocytes (%) (Auto) 24 12-44 % Monocytes (%) (Auto) 8 0-12 % Eosinophils (%) (Auto) 5 0-10 % Basophils (%) (Auto) 1 0-10 % Neutrophils # (Auto) 6.0 1.8-7.8 10^3/uL Lymphocytes # (Auto) 2.3 1.0-4.0 10^3/uL Monocytes # (Auto) 0.8 0.0-1.0 10^3/uL Eosinophils # (Auto) 0.5 H 0.0-0.3 10^3/uL Basophils # (Auto) 0.1 0.0-0.1 10^3/uL Immature Granulocyte # (Auto) 0.1 0.0-0.1 10^3/uL Sodium Level 140 135-145 MMOL/L Potassium Level 4.4 3.6-5.0 MMOL/L Chloride Level 103 98-107 MMOL/L Carbon Dioxide Level 27 21-32 MMOL/L Anion Gap 10 5-14 MMOL/L Blood Urea Nitrogen 15 7-18 MG/DL Creatinine 1.14 0.60-1.30 MG/DL Estimat Glomerular Filtration Rate 67 BUN/Creatinine Ratio 13 Glucose Level 183 H 70-105 MG/DL Calcium Level 9.4 8.5-10.1 MG/DL Corrected Calcium 9.2 8.5-10.1 MG/DL Total Bilirubin 0.3 0.1-1.0 MG/DL Aspartate Amino Transf (AST/SGOT) 17 5-34 U/L Alanine Aminotransferase (ALT/SGPT) 23 0-55 U/L Alkaline Phosphatase 106 40-136 U/L B-Type Natriuretic Peptide 100.4 H <100.0 PG/ML Total Protein 7.5 6.4-8.2 GM/DL Albumin 4.2 3.2-4.5 GM/DL Influenza Type A (RT-PCR) Not Detected Not Detecte Influenza Type B (RT-PCR) Not Detected Not Detecte SARS-CoV-2 RNA (RT-PCR) Not Detected Not Detecte My Orders Orders - BRUEGGEMANN,DARRELL T MD BNP (02/24/21 19:17) Cbc With Automated Diff (02/24/21 19:17) Comprehensive Metabolic Panel (02/24/21 19:17) Chest 1 View, Ap/Pa Only (02/24/21 19:17) Ed Iv/Invasive Line Start (02/24/21 19:17) Covid 19 Inhouse Test (02/24/21 19:17) Influenza A And B By Pcr (02/24/21 19:17) Vital Signs/I&O 02/24/21 02/24/21 20:21 22:25 Temp 36.8 Pulse 87 85 Resp 24 20 B/P (MAP) 175/96 (122) 164/121 Pulse Ox 95 97 O2 Delivery Room Air Room Air Capillary Refill : Less Than 3 Seconds Blood Pressure Mean: 122 Progress Note : Progress Note Work-up was relatively unremarkable. We discussed increasing diuretic dosing to help him get through the weekend. See discharge instructions. Diagnostic Imaging Diagonstic Imaging: Xray Plain Films/CT/US/NM/MRI: chest Comments X-ray viewed by me and compared with prior. See report below: NAME: STACY PATEL [facility] REC#: [id number] PT STATUS: REG ER : 1965 PHYSICIAN: DARRELL MARTIN MD ADMIT DATE: 02/24/21/ER Signed Date of Exam:02/24/21 CHEST 1 VIEW, AP/PA ONLY INDICATION: Shortness of air. TECHNIQUE: Single view chest 9:13 PM. CORRELATION STUDY: None. FINDINGS: Tracheostomy tube tip projects interposed between the clavicles over the trachea. Heart size enlarged, mediastinum prominent. Vasculature is increased. No definitive consolidating infiltrate. Probable small right pleural effusion. IMPRESSION: Cardiac enlargement and prominent mediastinum along with what appears to be pulmonary vascular congestion. Mediastinal prominence of unknown etiology or significance. Dictated by: Dictated on workstation # [id number] Dict: 02/24/212145 Trans: 02/24/212229 [facility] [id number] Interpreted by: PORFIRIO JACQUES DO Electronically signed by: PORFIRIO JACQUES DO 02/24/212229 Departure Impression Primary Impression: Edema Qualified Codes: R60.9 - Edema, unspecified Additional Impression: COPD exacerbation Disposition: 01 HOME, SELF-CARE Condition: Stable Departure-Patient Inst. Decision time for Depature: 22:17 Referrals: [facility]MA[facility] (PCP) Primary Care Physician SHANNON BERNABE APRN (Family) Primary Care Physician Patient Instructions: COPD Exacerbation, Adult ED, Dependent Edema (DC) Add. Discharge Instructions: To help manage your swelling through the weekend you may take some extra doses of Bumex. I would suggest taking either an extra 2 mg tonight or along with your usual dose in the morning. You may additionally take an extra 2 mg on Friday morning. Then contact your Bumex prescriber on Friday to determine the best course of further management. To help manage your COPD through the , continue taking DuoNeb treatments every 4 hours on a schedule. Additionally take an albuterol treatment every 2 hours between the DuoNeb treatments if needed for shortness of air. Call with questions or concerns. Follow-up with your primary care provider soon as possible. Call your pulmonary doctor and your Bumex prescriber on Friday for further instructions. Return to the ER if you have worsening symptoms. All discharge instructions reviewed with patient and/or family. Voiced understanding. Copy Copies To 1: TREVOR GLOVER JOSHUA T MD Feb 24, 2021 22:20
[2021-02-24 22:25] VITALS: BP 164/121
== END 2021-02-24 22:25 | disposition home or self-care (01) ==
LOC: EDUNIT# 18:51 → ER 18:53
DX: R60.9 Edema, unspecified (principal); J44.1 Chronic obstructive pulmonary disease with (acute) exacerbation; J45.909 Unspecified asthma, uncomplicated; E11.9 Type 2 diabetes mellitus without complications; Z20.822 Contact with and (suspected) exposure to COVID-19
CPT/HCPCS: 36415; 71045; 80053; 83880; 85025; 87636

== ENCOUNTER 2021-06-11 13:47 | Emergency (ER) | payer MEDICARE, MEDICAID ==
[~2021-06-11] VITALS: Ht 170.2 cm; Wt 145.1 kg
--- OUTSIDE RECORDS SUMMARY | 2021-06-11 13:52 | XMS REPORT | Encounter Summary ---
Author Author [facility] Organization [facility] Address Unknown Phone Unavailable Care Team Providers Care Polysomnograph Tech Name Role Phone Dov Farr MD Unavailable Pasha Sweet MD Unavailable Braden Covarrubias DO Unavailable Jerod Canales MD PCP Reason for Visit * Reason Onset Date Comments Home Health Patient 05/01/2021 Update Encounter Details Care Team Description [place] [address] [facility] [place] [address] [place] [address] Home Health Patient Update 05/01/2021 Telephone Otolaryngology: [address] [place] [address] Social History Date Tobacco Use [...] Telephone Encounter - Mimi Hernandez LPN - 05/01/2021 1:58 PM CDT Returned call with no answer. Left voicemail requesting a call back. * Telephone Encounter - Ania Hooker - 05/01/2021 12:45 PM CDT Requesting return call to discuss home health care plan of care due to his [facility] living and requesting trach removal as a option. documented in this encounter Plan of Treatment Not on filedocumented as of this encounter Goals Goal Patient Associated Recent Progress Patient-Stat Aut hor Goal Type Problems ed? 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 A Body Mass Index follow-up plan has be en documented for the patient 02/13/2021 7:42 AM CDT PHQ-2 Depression Total Score: 2 documented as of this encounter Care Teams Start Date End Date Polysomnograph Tech Relationship Specialty 11/08/20 Jerod Canales MD PCP - General [address] [address] 02/25/19 Dov Farr MD Pulmonary [address] Disease Ortho/Med [address] [address] [place], [place] [id number] 04/20/19 Pasha Sweet MD Otolaryngolo [address] [facility] [place] [address] [place], [place] [address] 08/27/19 Braden Covarrubias, Vascular [address] [facility], [place] [phone] documented as of this encounter
--- OUTSIDE RECORDS SUMMARY | 2021-06-11 13:52 | XMS REPORT | Encounter Summary ---
Author Author [facility] Organization [facility] Address Unknown Phone Unavailable Care Team Providers Care Heel Caser Name Role Phone Dov Farr MD Unavailable Pasha Sweet MD Unavailable Braden Covarrubias DO Unavailable Jerod Canales MD PCP Reason for Visit * Reason Onset Date Comments Worsening Symptoms 05/29/2021 Encounter Details Care Team Description [place] [address] [place] [facility] [address] [place] [address] Worsening Symptoms 05/29/2021 Telephone [facility] [address] [place] [address] Social History Date Tobacco Use Types Packs/Day Years Used Former Smoker Cigarettes 0.5 5 Smokeless Tobacco: Never Used Comments Alcohol Use Standard Drinks/Week No 0 (1 standard drink = 0.6 o z pure alcohol) Sex Assigned at Date Recorded Male 10/14/2019 10:40 AM CDT Date Recorded COVID-19 Exposure Response 05/08/2021 9:12 AM NEWS INTERNSHIP In the last month, have you been in contact with No / Unsure someone who was confirmed or suspected to have Coronavirus / COVID-19? documented as of this encounter Functional Status Date of Assessment Functional Status Response 05/07/2021 Does the patient have a hearing impairment: No 05/07/2021 Does the patient have a visual impairment: Yes 05/07/2021 Does the patient have impaired ambulation: Yes 05/07/2021 Does the patient have an activity of daily living No (ADL) impairment: 05/07/2021 Does the patient have an instrumental activity of No daily living (IADL) impairment: Date of Assessment Cognitive Status Response 05/07/2021 Does the patient have a cognitive impairment: No documented as of this encounter Miscellaneous Notes * Telephone Encounter - Mimi Hernandez LPN - 05/29/2021 11:10 AM [employer] INTERNSHIP Duplicate encounter. INTERNSHIP documented in this encounter Plan of Treatment Not on filedocumented as of this encounter Goals Goal Patient Associated Recent Progress Patient-Stat Aut hor Goal Type Problems ed? Weight Loss Exercise Yes Delaney Jauregui, DANNY Note: "Lose some weight and get more healthy" [facility] Cristina Jansen RN Note: Get home to my dog documented as of this encounter Visit Diagnoses Not on filedocumented in this encounter Additional Health Concerns Noted Time Assessment 03/08/2019 12:35 PM CDT PHQ-9 Depression Total Score: 0 05/07/2021 9:57 AM NEWS INTERNSHIP A fall risk assessment has been complet ed for the patient 08/04/2020 11:41 AM NEWS INTERNSHIP A Body Mass Index follow-up plan has be en documented for the patient 05/07/2021 9:56 AM NEWS INTERNSHIP PHQ-2 Depression Total Score: 2 documented as of this encounter Care Teams Start Date End Date Heel Caser Relationship Specialty 11/08/20 Jerod Canales MD PCP - General [address] Medicine [place], [place] [address] 02/25/19 Dov Farr MD Pulmonary [address] [facility] Disease Ortho/Med Pavilion [address] [place] [address] 04/20/19 Pasha Sweet MD Otolaryngolo [address] gy [facility] [place] [address] [place] [address] 08/27/19 Braden Covarrubias DO Vascular [address] [place] [address] documented as of this encounter
--- OUTSIDE RECORDS SUMMARY | 2021-06-11 13:52 | XMS REPORT | Encounter Summary ---
Author Author [facility] Organization [facility] Address Unknown Phone Unavailable Care Team Providers Care Natural Resources Engineer Name Role Phone Dov Farr MD Unavailable Pasha Sweet MD Unavailable Braden Covarrubias DO Unavailable Jerod Canales MD PCP Reason for Visit * Reason Onset Date Comments Cough 05/29/2021 Encounter Details Care Team Description Date [place] [address] [facility] [address] [place] [address] Cough 05/29/2021 Telephone Otolaryngology: Andrei azar [facility], 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 Robbins, he says that what he is coughing up in bloody mucus, told him that Dr. Sweet wants him to keep his trach humidified, patient says that he is. Dr. Sweet thinks he is ok for now and it is probably related to dryness, but if it continues, he strongly recommends the patient gets evaluated at the ER. I asked advised a visit with his well control instructor soon RAL OFFICE INSPECTOR documented in this encounter Plan of Treatment Not on filedocumented as of this encounter Goals Goal Patient Associated Recent Progress Patient-Stat Aut hor Goal Type Problems ed? Weight Loss Exercise Yes Delaney Jauregui, DANNY Note: "Lose some weight and get more healthy" [facility] No Cristina Jansen RN Note: Get home to my dog documented as of this encounter Visit Diagnoses Not on filedocumented in this encounter Additional Health Concerns Noted Time Assessment 03/08/2019 12:35 PM CDT PHQ-9 Depression Total Score: 0 05/07/2021 9:57 AM CENTRAL OFFICE INSPECTOR A fall risk assessment has been complet ed for the patient 08/04/2020 11:41 AM CENTRAL OFFICE INSPECTOR A Body Mass Index follow-up plan has be en documented for the patient 05/07/2021 9:56 AM CENTRAL OFFICE INSPECTOR PHQ-2 Depression Total Score: 2 documented as of this encounter Care Teams Start Date End Date Natural Resources Engineer Relationship Specialty 11/08/20 Jerod Canales MD PCP - General [address] [address] 02/25/19 Dov Farr MD Pulmonary [address] Disease Ortho/Med Pavilion [address] [place], [place] [phone] 04/20/19 Pasha Sweet MD Otolaryngolo [address] gy [facility] [place] [address] [place] [address] 08/27/19 Braden Covarrubias, DO Vascular [address] [place] [address] documented as of this encounter
--- OUTSIDE RECORDS SUMMARY | 2021-06-11 13:52 | XMS REPORT | Encounter Summary ---
Author Author [facility] Organization [facility] Address Unknown Phone Unavailable Care Team Providers Care Tax Manager Name Role Phone Dov Farr MD Unavailable Pasha Sweet MD Unavailable Braden Covarrubias DO Unavailable Jerod Canales MD PCP Reason for Referral * Consult, Test & Treat (Routine) Referred By Contact Referred To Contact Status Reason Specialty Diagnoses / Procedures Brianda Shah MD [address] [facility] [place] [address] New Request Procedures REQUEST FOR CARDIOLOGY APPOINTMENT Electronically signed by Brianda Shah MD at Reason for Visit * Reason Onset Date Comments Leg Swelling 04/19/2021 f/u call from [facility] note sent by pt today Encounter Details Care Team Description Date Type Department Sania Solis RN Leg Swelling (f/u call from [employer] note sent by pt today) 04/19/2021 [facility] [address] [place] [address] Social History Date Tobacco Use Types Packs/Day [...] as of this encounter Miscellaneous Notes * Addendum Note - Jose Lynn BSN - 04/24/2021 2:45 PM CDT Addended by: JOSE LYNN on: 04/24/2021 02:45 PM Modules accepted: Orders * Telephone Encounter - Jose Lynn BSN - 04/24/2021 2:38 PM CDT [employer] update sent to patient to confirm telehealth appt. * Telephone Encounter - Jose Lynn BSN - 04/24/2021 2:12 PM CDT Followed up with Conor. He states his PCP is going to make some medication adjus tments for a few days and see how that goes. He was willing to see [facility] on [facility] er 8 or 9 because he will be here for appointments already. No available appoint ments at this time at or near the OP location where his other appointments will be. Will try to schedule telehealth appointment since he can't travel up here. * Telephone Encounter - Sania Solis RN - 04/19/2021 3:44 PM CDT Called pt after receiving the [employer] message below. His phone rings directly to Jorge A for pt to call us back to discuss. Also reminded he is overdue for appt. * Telephone Encounter - Sania Solis RN - 04/19/2021 3:42 PM CDT ----- Message from Camila Cabral RN sent at 04/19/2021 1:03 PM CDT ----- Regarding: FW: Non-Urgent Medical Question Contact: ----- Message ----- From: Conor Robbins Sent: 04/19/2021 1:02 PM CDT To: Cvm Nurse Triage Ku Subject: Non-Urgent Medical Question My legs are swelled up produce water blisters my legs also get dry itch and Pee l I take 2 water pills they are also little red and sometimes got a burning fee ling not all th we time. Give me call [phone] B.d documented in this encounter Plan of Treatment Order Schedule Name Type Priority Associated Diag noses Expected: 05/04/2021 (Approximate), Expi res: 04/24/2022 BASIC METABOLIC PANEL Lab Routine Chronic heart failure with preserved ejection fraction (HFpEF) (HCC) documented as of this encounter Goals Goal Patient Associated Recent Progress Patient-Stat Aut hor Goal Type Problems ed? Weight Loss Exercise Yes Delaney Jauregui, RN Note: "Lose some weight and get more healthy" [facility] No Cristina Jansen RN Note: Get home to my dog documented as of this encounter Visit Diagnoses Diagnosis Chronic heart failure with preserved ej ection fraction (HFpEF) (HCC) - Primary documented in this encounter Orders First Ordered Date Appointment Count Last Ordered Date REQUEST FOR CARDIOLOGY APPOINTMENT 1 documented in this encounter Additional Health Concerns Assessment Noted Time PHQ-9 Depression Total Score: 0 03/08/2019 12:35 PM CDT A fall risk assessment has been completed for the pat ient 02/13/2021 7:43 AM CDT A Body Mass Index follow-up plan has been documented for the patient 08/04/2020 11:41 AM BRAND AMBASS[employer]ORS [employer]OMOTIONAL SALES PHQ-2 Depression Total Score: 2 02/13/2021 7:42 AM CDT documented as of this encounter
--- OUTSIDE RECORDS SUMMARY | 2021-06-11 13:52 | XMS REPORT | Encounter Summary ---
Author Author [facility] Organization [facility] Address Unknown Phone Unavailable Care Team Providers Care Director Of Consumer Affairs Name Role Phone Dov Farr MD Unavailable Pasha Sweet MD Unavailable Braden Covarrubias DO Unavailable Jerod Canales MD PCP Reason for Visit * Reason Comments Pain Encounter Details Care Team Description Date Type Department Low Conn, DO [address] [facility] [place] [address] Anal fissure (Primary Dx) 05/07/2021 Office Visit Oncology: Katie lopez, [facility] [address] [place] [address] Social History Date Tobacco Use Types Packs/Day Years Used Former Smoker Cigarettes 0.5 5 Smokeless Tobacco: Never Used Comments Alcohol Use Standard Drinks/Week No 0 (1 standard drink = 0.6 o z pure alcohol) Sex Assigned at Date Recorded Male 10/14/2019 10:40 AM CDT Date Recorded COVID-19 Exposure Response 05/08/2021 9:12 AM EQUALIZER OPERATOR In the last month, have you been in contact with No / Unsure someone who was confirmed or suspected to have Coronavirus / COVID-19? documented as of this encounter Last Filed Vital Signs Reading Time Taken Comments Vital Sign 132/71 05/07/2021 9:49 AM EQUALIZER OPERATOR Blood Pressure 89 05/07/2021 9:49 AM EQUALIZER OPERATOR Pulse 36.2 C (97.1 F) 05/07/2021 9:49 AM EQUALIZER OPERATOR Temperature 18 05/07/2021 9:49 AM EQUALIZER OPERATOR Respiratory Rate 99% 05/07/2021 9:49 AM EQUALIZER OPERATOR Oxygen Saturation - - Inhaled Oxygen Concentration 151 kg (333 lb) 05/07/2021 9:49 AM EQUALIZER OPERATOR Weight 170.2 cm (5' 7.01") 05/07/2021 9:49 AM EQUALIZER OPERATOR Height 52.14 05/07/2021 9:49 AM EQUALIZER OPERATOR Body Mass Index documented in this encounter [...] impairment: No documented as of this encounter Ordered Prescriptions Start Date End Date Prescription Sig Dispensed Refills 05/07/2021 NIFEDIPINE/LIDOCAINE Apply 30 g 1 0.3%/1.5% IN PETROLATUM topically to OINTMENT affected area (COMPOUND)Indications: three times Anal fissure daily. Apply a pea sized amount to affected area three times a day. External use only. documented in this encounter Progress Notes * Low Conn DO - 05/07/2021 10:15 AM EQUALIZER OPERATOR Images from the original note were not included. Name: Conor Robbins : 1965 AGE: 55 y .o. DATE OF SERVICE: 05/07/2021 Subjective: Reason for Visit: No chief complaint on file. Conor Robbins is a 55 y.o. male. Cancer Staging No matching staging information was found for the patient. History of Present Illness 55 y.o. male with CHF and tracheostomy. He is here for follow up of an anal fis sure. He is still having pain with this. No bleeding. Constipation is still a n issues. He is using clear lax and linzess. Medical History: Diagnosis Date Acid reflux Anticoagulated Xarelto Anxiety and depression Asthma Blood clot in vein Both Legs BMI 50.0-59.9, adult ([facility]) Chronic kidney disease Chronic respiratory failure ([facility]) DDD (degenerative disc disease), lumbar 11/13/2019 DM (diabetes mellitus) ([facility]) 2017 DVT of leg (deep venous thrombosis) ([facility]) 2015 BOTH Edema of both lower extremities due to peripheral venous insufficiency Former tobacco use Heart palpitations Hypertension Localized edema 11/13/2019 On supplemental oxygen by nasal cannula 2-2.5L/ NC during the day and 3L/NC at HS PAYAM (obstructive sleep apnea) no CPAP cannot tolerate Pneumonia PONV (postoperative nausea and vomiting) Rash of body abdominal rash S/P carpal tunnel release 11/13/2019 S/p nephrectomy 11/13/2019 Tachycardia 11/13/2019 Tobacco abuse Surgical History: Procedure Laterality Date TONSILLECTOMY 1973 NEPHRECTOMY Right 1980 HX APPENDECTOMY 1980 HX CHOLECYSTECTOMY 2004 SHOULDER ARTHROPLASTY Left 2010 COLONOSCOPY 2018 TRACHEOSTOMY FENESTRATION PROCEDURE WITH SKIN FLAP N/A 03/22/2019 Performed by Pasha Sweet Jr., MD at [facility] OR CATHETERIZATION RIGHT HEART N/A 11/08/2020 Performed by Brianda Shah MD at [facility] ADMINISTRATION PHARMACOLOGIC AGENT - NITRIC OXIDE N/A 11/08/2020 Performed by Brianda Shah MD at [facility] ANKLE FUSION Bilateral hardware inserted left ankle/right ankle bone spur ANKLE SURGERY Bilateral Family History Problem Relation Age of Onset Unknown to Patient Mother Diabetes Mother Hypertension Mother Unknown to Patient Father None Reported Sister Social History Socioeconomic History Marital status: Single Spouse name: Not on file Number of children: Not on file Years of education: Not on file Highest education level: Not on file Occupational History Not on file Tobacco Use Smoking status: Former Smoker Packs/day: 0.50 Years: 5.00 Pack years: 2.50 Types: Cigarettes Smokeless tobacco: Never Used Vaping Use Vaping Use: Never used Substance and Sexual Activity Alcohol use: No Alcohol/week: 0.0 standard drinks Drug use: No Sexual activity: Not on file Other Topics Concern Not on file Social History Narrative Not on file Vaping/E-liquid Use Vaping Use Never User CBD Product Type Oil Route Topical Current Frequency Few times per month Indication Pain Max Frequency None Indication Comments for back pain Review of Systems Constitutional: Positive for diaphoresis. HENT: Positive for ear pain, hearing loss, mouth sores and voice change. Eyes: Positive for photophobia. Respiratory: Positive for apnea, cough and shortness of breath. Cardiovascular: Positive for leg swelling. Gastrointestinal: Positive for abdominal pain, constipation and rectal pain. Endocrine: Positive for cold intolerance, heat intolerance, polydipsia and polyp hagia. Genitourinary: Positive for dysuria and genital sores. Musculoskeletal: Positive for arthralgias, back pain, joint swelling, myalgias, neck pain and neck stiffness. Skin: Negative. Allergic/Immunologic: Positive for environmental allergies. Neurological: Positive for weakness, numbness and headaches. Hematological: Negative. Psychiatric/Behavioral: Positive for confusion and sleep disturbance. Objective: acetaminophen SR (TYLENOL) 650 mg tablet [...] Take one tablet by mouth twice daily. NIFEDIPINE/LIDOCAINE 0.3%/1.5% IN PETROLATUM OINTMENT (COMPOUND) Apply topi suzie to affected area three times daily. Apply a pea sized amount to affected a lizbeth three times a day for pain. External use only. ondansetron (ZOFRAN) 4 mg tablet Take 4 [...] Take 5 mg by mouth daily. Vitals: 05/07/21 0949 BP: 132/71 BP Source: Arm, Right Upper Patient Position: Sitting Pulse: 89 Resp: 18 Temp: 36.2 C (97.1 F) TempSrc: Temporal SpO2: 99% Weight: (!) 151 kg (333 lb) Height: 170.2 cm (67.01") PainSc: Seven Body mass index is 52.14 kg/m. Pain Score: Seven Pain Loc: Back (back and neck pain) Fatigue Scale: 0-None Pain Addressed: N/A Patient Evaluated for a Clinical Trial: No treatment clinical trial available fo r this patient. Eastern Cooperative Oncology Group performance status is 0, Fully active, able t o carry on all pre-disease performance without restriction.. Physical Exam Genitourinary: Assessment and Plan: 55 y.o. male with anal fissure. He is out of the cream I gave him. I would lik e to start this again. He is staying at a care facility. LIZER OPERATOR documented in this encounter Plan of Treatment Not on filedocumented as of this encounter Goals Goal Patient Associated Recent Progress Patient-Stat Aut hor Goal Type Problems ed? Weight Loss Exercise Yes Delaney Jauregui, RN Note: "Lose some weight and get more healthy" [facility] No Cristina Jansen RN Note: Get home to my dog documented as of this encounter Visit Diagnoses Diagnosis Anal fissure - Primary documented in this encounter Additional Health Concerns Noted Time Assessment 03/08/2019 12:35 PM CDT PHQ-9 Depression Total Score: 0 05/07/2021 9:57 AM EQUALIZER OPERATOR A fall risk assessment has been complet ed for the patient 08/04/2020 11:41 AM EQUALIZER OPERATOR A Body Mass Index follow-up plan has be en documented for the patient 05/07/2021 9:56 AM EQUALIZER OPERATOR PHQ-2 Depression Total Score: 2 documented as of this encounter Care Teams Start Date End Date Director Of Consumer Affairs Relationship Specialty 11/08/20 Jerod Canales MD PCP - [address] [place] [address] 02/25/19 Dov Farr MD Pulmonary [address] [facility] Disease Ortho/Med Pavilion [address] [place], [place] [id number] 04/20/19 Pasha Sweet MD Otolaryngolo [address] [address] [place] [address] [place] [address] 08/27/19 Braden Covarrubias, Vascular [address] [place], [place] [id number] documented as of this encounter
--- OUTSIDE RECORDS SUMMARY | 2021-06-11 13:52 | XMS REPORT | Encounter Summary ---
Author Author [facility] Organization [facility] Address Unknown Phone Unavailable Care Team Providers Care Quality Assurance Advisor Name Role Phone Dov Farr MD Unavailable Pasha Sweet MD Unavailable Braden Covarrubias DO Unavailable Jerod Canales MD PCP Encounter Details Care Team Description Date Type Department 05/07/2021 Travel Social History Date Tobacco Use Types Packs/Day Years Used Former Smoker Cigarettes 0.5 5 Smokeless Tobacco: Never Used Comments Alcohol Use Standard Drinks/Week No 0 (1 standard drink = 0.6 o z pure alcohol) Sex Assigned at Date Recorded Male 10/14/2019 10:40 AM CDT Date Recorded COVID-19 Exposure Response 05/07/2021 9:35 AM YEAST WASHER In the last month, have you been [...] impairment: No documented as of this encounter Plan of Treatment Not on filedocumented as of this encounter Goals Goal Patient Associated Recent Progress Patient-Stat Aut hor Goal Type Problems ed? Weight Loss Exercise Yes Delaney Jauregui, RN Note: "Lose some weight and get more healthy" [facility] No Cristina Jansen, RN Note: Get home to my dog documented as of this encounter Visit Diagnoses Not on filedocumented in this encounter Additional Health Concerns Noted Time Assessment 03/08/2019 12:35 PM CDT PHQ-9 Depression Total Score: 0 05/07/2021 9:57 AM YEAST WASHER A fall risk assessment has been complet ed for the patient 08/04/2020 11:41 AM YEAST WASHER A Body Mass Index follow-up plan has be en documented for the patient 05/07/2021 9:56 AM YEAST WASHER PHQ-2 Depression Total Score: 2 documented as of this encounter Care Teams Start Date End Date Quality Assurance Advisor Relationship Specialty 11/08/20 Jerod Canales MD PCP - General [address] [place] [address] 02/25/19 Dov Farr MD [facility] [address] [facility]Med Pav[address] [place] [address] 04/20/19 Pasha Sweet MD Otolaryngolo [address] [facility] [place] [address] [place] [address] 08/27/19 Braden Covarrubias DO Vascular [address] [facility] [place] [address] documented as of this encounter
--- OUTSIDE RECORDS SUMMARY | 2021-06-11 13:52 | XMS REPORT | Encounter Summary ---
Author Author [facility] Organization [facility] Address Unknown Phone Unavailable Care Team Providers Care Dental Secretary Name Role Phone Dov Farr MD Unavailable Pasha Sweet MD Unavailable Braden Covarrubias DO Unavailable Jerod Canales MD PCP Encounter Details Care Team Description Date Type Department 05/08/2021 Travel Social History Date Tobacco Use Types Packs/Day Years Used Former Smoker Cigarettes 0.5 5 Smokeless Tobacco: Never Used Comments Alcohol Use Standard Drinks/Week No 0 (1 standard drink = 0.6 o z pure alcohol) Sex Assigned at Date Recorded Male 10/14/2019 10:40 AM CDT Date Recorded COVID-19 Exposure Response 05/08/2021 9:12 AM TOURIST AGENT In the last month, have you been [...] some weight and get more healthy" [facility] No Cristina Jansen, RN Note: Get home to my dog documented as of this encounter Visit Diagnoses Not on filedocumented in this encounter Additional Health Concerns Noted Time Assessment 03/08/2019 12:35 PM CDT PHQ-9 Depression Total Score: 0 05/07/2021 9:57 AM TOURIST AGENT A fall risk assessment has been complet ed for the patient 08/04/2020 11:41 AM TOURIST AGENT A Body Mass Index follow-up plan has be en documented for the patient 05/07/2021 9:56 AM TOURIST AGENT PHQ-2 Depression Total Score: 2 documented as of this encounter Care Teams Start Date End Date Dental Secretary Relationship Specialty 11/08/20 Jerod Canales MD PCP - General [address] [place] [address] 02/25/19 Dov aFrr MD [facility] [address] [place] [address] 04/20/19 Pasha Sweet MD Otolaryngolo [address] [facility] Med [place] [address] [place] [address] 08/27/19 Braden Covarrubias DO Vascular [address] [facility] [place] [address] documented as of this encounter
--- OUTSIDE RECORDS SUMMARY | 2021-06-11 13:52 | XMS REPORT | Clinical Summary ---
Author Author [facility] Organization [facility] Address Unknown Phone Unavailable Care Team Providers Care Dialysis Patient Care Technician Name Role Phone Dov Farr MD Unavailable Pasha Sweet MD Unavailable Braden Covarrubias DO Unavailable Jerod Canales MD PCP Source Comments Some departments are not documenting in the electronic medical record. If you d o not see the information that you expected, contact Release of Information in merged with [facility] Health Information Management department at [phone] for further assistan ce in locating additional records.[facility] Allergies Comments Active Allergy Reactions Severity Noted Date Tongue Twitching Aripiprazole SEE COMMENTS Low 02/04/2019 Allergen Axl-Mxork-Qadzn ANAPHYLAXIS High 03/14 Bee Cefuroxime Axetil ANAPHYLAXIS [...] EVENING MEAL Active GAVILAX 17 gram/dose CONSUME /2 0 powder CAPFUL (9 0 GRAMS) BY [...] once daily in the morning thereafter. Active NIFEDIPINE/LIDOCAINE Apply 30 g 1 03/19 0.3%/1.5% IN PETROLATUM topically to 1 OINTMENT affected area (COMPOUND)Indications: three times Anal pain daily. Apply a pea sized amount to affected area three times a day for pain. External use only. Active spironolactone Take one 180 tablet 3 (ALDACTONE) 25 mg tablet tablet by 1 mouth twice daily. Take with food. Active NIFEDIPINE/LIDOCAINE Apply 30 g 1 05/07 0.3%/1.5% IN PETROLATUM topically to 1 OINTMENT affected area (COMPOUND)Indications: three times Anal fissure daily. Apply a pea sized amount to affected area three times a day. External use only. Active mupirocin (CENTANY) 2 % Apply 22 g 0 topical ointment topically to 1 affected area three times daily. 05/25/2021 levoFLOXacin (LEVAQUIN) Take one 7 tablet 0 500 mg tablet tablet by 1 mouth daily for 7 days. Active Problems Problem Noted Date Anal fissure 03/19/2021 Solitary kidney 11/13/2020 Acute on chronic diastolic [...] the original. Weight loss strongly encouraged as group home option. The benefits of weight loss in [...] of depression and was just discharged from [facility] inpatient unit in [facility]. L ast Assessment & Plan: Formatting of this note might be differ ent from the original. He will continue his Cymbalta and Trazo done at current doses. He is not suicidal at this time. Chronic kidney disease Encounters Care Team Description Date Type Specialty Pasha Sweet MD Cough 05/29/2021 Telephone Otolaryngology Pasha Sweet MD Other 05/29/2021 Telephone Otolaryngology Pasha Sweet MD Worsening Symptoms 05/29/2021 Telephone OtolaryngologPasha Osborn MD Other 05/18/2021 Telephone Otolaryngology Pasha Sweet MD Morbid obesity with BMI of 50.0-59.9, ad ult (HCC) (Primary Dx); Obstructive sleep apnea syndrome; Chronic respiratory failure with hypoxia and hypercapnia (HCC); Tracheostomy dependence (HCC) 05/08/2021 Office Visit Otolaryngology 05/08/2021 Travel Low Conn DO Anal fissure (Primary Dx) 05/07/2021 Office Visit Oncology 05/07/2021 Travel Pasha Sweet MD Home Health Patient Update 05/01/2021 Telephone Otolaryngology Sania Solis RN Leg Swelling (f/u call from [employer] note sent by pt today) 04/19/2021 Telephone Cardiology Pasha Sweet MD Other 04/05/2021 Telephone Otolaryngology Pavan Dia LPN Medication Refill 03/30/2021 Refill Cardiology Pavan Dia LPN 03/22/2021 Telephone Cardiology Dov Farr MD DME Follow Up ([facility] Tracheostomy Red C ap) 03/21/2021 Telephone Pulmonology Low Conn DO Anal pain (Primary Dx); Morbid obesity (HCC); Anal fissure 03/19/2021 Office Visit Oncology 03/19/2021 Travel from Last 3 Months Immunizations Name Administration [...] by nasal 2-2.5L/ NC during t he and 3L/NC at HS cannula Anticoagulated Xarelto Asthma Chronic respiratory failure (HCC) DM (diabetes mellitus) (HCC) 2017 PONV (postoperative nausea and vomiting) Acid reflux Anxiety and depression Chronic kidney disease Rash of body abdominal rash Heart palpitations Edema of both lower extremities due to peripheral venous insufficiency DVT of leg (deep venous thrombosis) 2014 ([facility]) BMI 50.0-59.9, adult ([facility]) Tobacco abuse Former tobacco use Tachycardia 11/13/2019 [...] Signs Reading Time Taken Comments Vital Sign 141/77 05/08/2021 9:24 AM ROLL SHEETING CUTTER Blood Pressure 90 05/08/2021 9:24 AM ROLL SHEETING CUTTER Pulse 36.2 C (97.1 F) 05/07/2021 9:49 AM ROLL SHEETING CUTTER Temperature 18 05/07/2021 9:49 AM ROLL SHEETING CUTTER Respiratory Rate 99% 05/07/2021 9:49 AM ROLL SHEETING CUTTER Oxygen Saturation - - Inhaled Oxygen Concentration 150.6 kg (332 lb) 05/08/2021 9:24 AM ROLL SHEETING CUTTER Weight 170.2 cm (5' 7") 05/08/2021 9:24 AM ROLL SHEETING CUTTER Height 52 05/08/2021 9:24 AM ROLL SHEETING CUTTER Body Mass Index Plan of Treatment Health Maintenance Due Date Last Done Comments MEDICARE ANNUAL WELLNESS 1965 VISIT HIV SCREENING 11/27/1982 DILATED EYE EXAM 11/27/1985 DTAP/TDAP VACCINES (1 - 11/27/1985 Tdap) FOOT EXAM 11/27/1985 HBA1C 11/27/1985 HEPATITIS C SCREENING 11/27/1985 MICROALBUMIN 11/27/1985 PHYSICAL (COMPREHENSIVE) 11/27/1985 EXAM PNEUMONIA VACCINE (DM) 11/27/1985 COLORECTAL CANCER 11/27/2017 SCREENING SHINGLES RECOMBINANT 11/27/2017 VACCINE (1 of 2) INFLUENZA VACCINE 01/28/2021 03/25/2019, 06/15/2009 Goals Goal Patient Associated Recent Progress Patient-Stat Aut hor Goal Type Problems ed? Weight Loss Exercise Yes Delaney Jauregui, RN Note: "Lose some weight and get more healthy" [facility] No Cristina Jansen RN Note: Get home to my dog Results Not on filefrom Last 3 Months Insurance Type Payer Benefit Subscriber ID Effective Phone Address Plan / Dates Group Medicare MEDICARE MEDICARE [id number] 2005- [phone] [address] AND Present [address] [place] [address] Medicaid [employer] [employer] [id number] 2019-P [address] [place] [address] [place] [address] [facility]ID[facility] BILLING HOSP[facility]/HO [id number] 03/22/2019- [address] [facility] [facility] [id number] Advance Directives Patient Sales Host Explanation Type Date Recorded DPOA Advance 03/12/2019 [...] w/Patient or Family? necessary based on Dx Care Teams Start Date End Date Dialysis Patient Care Technician Relationship Specialty 11/08/20 Jerod Canales MD PCP - General Family [address] [place] [address] [place] [address] 02/25/19 Dov Farr MD Pulmonary [address] [facility] Disease Ortho/Med Pavilion [address] [place] [address] 04/20/19 Pasha Sweet MD Otolaryngolo [address] [facility] [address] [facility] [address] [place] [address] [place] [address] 08/27/19 Braden Covarrubias, Vascular [address] [place] [address]
--- OUTSIDE RECORDS SUMMARY | 2021-06-11 13:52 | XMS REPORT | Encounter Summary ---
Author Author [facility] Organization [facility] Address Unknown Phone Unavailable Care Team Providers Care Nurses' Aide Name Role Phone Dov Farr MD Unavailable Pasha Sweet MD Unavailable Braden Covarrubias DO Unavailable Jerod Canales MD PCP Reason for Visit * Reason Onset Date Comments Other 05/29/2021 Encounter Details Care Team Description [place] [address] [address] [place] [address] [place] [address] Other 05/29/2021 [facility]phone [facility] [address] [place] [address] Social History Date Tobacco Use Types Packs/Day Years Used Former Smoker Cigarettes 0.5 5 Smokeless Tobacco: Never Used Comments Alcohol Use Standard Drinks/Week No 0 (1 standard drink = 0.6 o z pure alcohol) Sex Assigned at Date Recorded Male 10/14/2019 10:40 AM CDT Date Recorded COVID-19 Exposure Response 05/08/2021 9:12 AM CONSULTANT ELECTRONICS In the last month, have you been [...] Encounter - Mimi Hernandez LPN - 05/29/2021 11:07 AM CONSULTANT ELECTRONICS Returned call to patient with no answer, left voicemail informing after talking with Dr. Sweet, he first wants to make sure he is keeping the trach humidified, however, if he is consistently coughing up blood, it could be a lung issue and h e would need to go to the ER to be evaluated. Requested for patient to call this nurse back. [employer] * Telephone Encounter - Mayra Vaughan - 05/29/2021 10:55 AM CONSULTANT ELECTRONICS Calling regarding some questions [employer] documented in this encounter Plan of Treatment Not on filedocumented as of this encounter Goals Goal Patient Associated Recent Progress Patient-Stat Aut hor Goal Type Problems ed? Weight Loss Exercise Yes Delaney Jauregui RN Note: "Lose some weight and get more healthy" [facility] No Cristina Jansen RN Note: Get home to my dog documented as of this encounter Visit Diagnoses Not on filedocumented in this encounter Additional Health Concerns Noted Time Assessment 03/08/2019 12:35 PM CDT PHQ-9 Depression Total Score: 0 05/07/2021 9:57 AM CONSULTANT ELECTRONICS A fall risk assessment has been complet ed for the patient 08/04/2020 11:41 AM CONSULTANT ELECTRONICS A Body Mass Index follow-up plan has be en documented for the patient 05/07/2021 9:56 AM CONSULTANT ELECTRONICS PHQ-2 Depression Total Score: 2 documented as of this encounter Care Teams Start Date End Date Nurses' Aide Relationship Specialty 11/08/20 Jerod Canales MD PCP - General [address] [id number] 02/25/19 Dov Farr MD Pulmonary [address] [facility] Disease Ortho/Med Pavilion [address] [place] [address] 04/20/19 Pasha Sweet MD Otolaryngolo [address] [place] [address] [place], [place] [phone] 08/27/19 Braden Covarrubias DO Vascular [address] [facility] [place] [address] documented as of this encounter
--- OUTSIDE RECORDS SUMMARY | 2021-06-11 13:52 | XMS REPORT | Encounter Summary ---
Author Author [facility] Organization [facility] Address Unknown Phone Unavailable Care Team Providers Care Biostatistics Professor Name Role Phone Dov Farr MD Unavailable Pasha Sweet MD Unavailable Braden Covarrubias DO Unavailable Jerod Canales MD PCP Reason for Visit * Reason Comments Follow Up Encounter Details Care Team Description [place] [address] [address] [facility] [address] [place] [address] Morbid obesity with BMI of 50.0-59.9, ad ult (HCC) (Primary Dx); Obstructive sleep apnea syndrome; Chronic respiratory failure with hypoxia and hypercapnia (HCC); Tracheostomy dependence (HCC) 05/08/2021 Office Visit Otolaryngology: [facility], [address] [place] [address] Social History Date Tobacco Use Types Packs/Day Years Used Former Smoker Cigarettes 0.5 5 Smokeless Tobacco: Never Used Comments Alcohol Use Standard Drinks/Week No 0 (1 standard drink = 0.6 o z pure alcohol) Sex Assigned at Date Recorded Male 10/14/2019 10:40 AM CDT Date Recorded COVID-19 Exposure Response 05/08/2021 9:12 AM ENGRAVER LETTER In the last month, have you been in contact with No / Unsure someone who was confirmed or suspected to have Coronavirus / COVID-19? documented as of this encounter Last Filed Vital Signs Reading Time Taken Comments Vital Sign 141/77 05/08/2021 9:24 AM ENGRAVER LETTER Blood Pressure 90 05/08/2021 9:24 AM ENGRAVER LETTER Pulse - - Temperature - - Respiratory Rate - - Oxygen Saturation - - Inhaled Oxygen Concentration 150.6 kg (332 lb) 05/08/2021 9:24 AM ENGRAVER LETTER Weight 170.2 cm (5' 7") 05/08/2021 9:24 AM ENGRAVER LETTER Height 52 05/08/2021 9:24 AM ENGRAVER LETTER Body Mass Index documented in this encounter [...] Date End Date Prescription Sig Dispensed Refills 05/08/2021 mupirocin (CENTANY) 2 % Apply 22 g 0 topical ointment topically to affected area three times daily. documented in this encounter Progress Notes * Pasha Sweet MD - 05/08/2021 9:30 AM ENGRAVER LETTER HISTORY OF PRESENT ILLNESS: Conor Robbins is a 55 y.o. male who presents to clinic today on follow-up of his severe obstructive sleep apnea that required formalized tracheotomy. Marisolcurt richard has been interested in having his trach removed. He is visited with sleep me damon and they recommended capping trials. He has not been able to keep the tr ach capped throughout the night yet. He has used it for a few hours at a time. He does require oxygen. I have not felt that removing the trach was a good idea for him. He has difficulties with his facility and home health which is his m ain reason for wanting to have it removed. He does well with a speaking valve. Review of Systems Constitutional: Negative. HENT: Negative. Eyes: Negative. Respiratory: Negative. Cardiovascular: Negative. Gastrointestinal: Negative. Endocrine: Negative. Genitourinary: Negative. Musculoskeletal: Negative. Skin: Negative. Allergic/Immunologic: Negative. Neurological: Negative. Hematological: Negative. Psychiatric/Behavioral: Negative. Past Medical/Surgical History He has a past medical history of Acid reflux, Anticoagulated, Anxiety and depre ssion, Asthma, Blood clot in vein, BMI 50.0-59.9, adult ([facility]), Chronic kidney di sease, Chronic respiratory failure ([facility]), DDD (degenerative disc disease), lumba r (11/13/2019), DM (diabetes mellitus) ([facility]) (2017), DVT of leg (deep venous thro mbosis) ([facility]) (2014), Edema of both lower extremities due to peripheral venous i nsufficiency, Former tobacco use, Heart palpitations, Hypertension, Localized ed azael (11/13/2019), On supplemental oxygen by nasal cannula, PAYAM (obstructive sleep apnea), Pneumonia, PONV (postoperative nausea and vomiting), Rash of body, S/P carpal tunnel release (11/13/2019), S/p nephrectomy (11/13/2019), Tachycardia (10/28), and Tobacco abuse. His has a past surgical history that includes cholecystectomy (2003); nephrecto my (Right, 1980); appendectomy (1980); tonsillectomy (1972); Ankle Fusion ([place], ); Ankle surgery (Bilateral); Shoulder Arthroplasty (Left, 2010); Colonoscopy (2018); and tracheostomy (N/A, 03/22/2019). Past Family/Social History His family history includes Diabetes in his mother; Hypertension in his mother; None Reported in his sister; Unknown to Patient in his father and mother. He reports that he has quit smoking. His smoking use included cigarettes. He moreira s a 2.50 pack-year smoking history. He has never used smokeless tobacco. He repo rts that he does not drink alcohol and does not use drugs. Medications/Allergies/Immunizations His current medication(s) include: Current Outpatient Medications Medication Sig Dispense Refill acetaminophen SR (TYLENOL) 650 mg tablet Take 1,300 mg by mouth at bedtime d aily. albuterol-ipratropium (DUO-NEB) 0.5 mg-3 mg(2.5 mg base)/3 mL nebulizer solu tion Inhale 3 mL solution by nebulizer as directed four times daily. 360 each 1 ALLERGY RELIEF (FEXOFENADINE) 180 mg tablet Take 180 mg by mouth daily. ALPRAZolam (XANAX) 0.5 mg tablet Take 0.5 mg by mouth three times daily as n eeded for Anxiety. antiseptic mucus solvent 120 mL 6-12 mL by Tracheal Tube route every 1 hour as needed. 120 mL 3 ascorbic acid (VITAMIN C) 500 mg tablet Take 500 mg by mouth daily. atorvastatin (LIPITOR) 20 mg tablet Take 20 mg by mouth daily. bumetanide (BUMEX) 2 mg tablet Take 2 pills by mouth twice daily for 3 days, then take 2 pills by mouth once daily in the morning thereafter. 72 tablet 1 cholecalciferol (VITAMIN D) 1,000 units tablet Take [...] Take one tablet by mouth twice daily. 60 tablet 11 mirtazapine (REMERON) 15 mg tablet Take 7.5 mg by mouth at bedtime daily. multivit-min/folic/vit K/lycop (MEN'S MULTIVITAMIN PO) Take 1 tablet by mout h daily. MYRBETRIQ 25 mg tablet Take one tablet by mouth twice daily. 60 tablet 5 NIFEDIPINE/LIDOCAINE 0.3%/1.5% IN PETROLATUM OINTMENT (COMPOUND) Apply topi suzie to affected area three times daily. Apply a pea sized amount to affected a lizbeth three times a day. External use only. 30 g 1 NIFEDIPINE/LIDOCAINE 0.3%/1.5% IN PETROLATUM OINTMENT (COMPOUND) Apply topi suzie to affected area three times daily. Apply a pea sized amount to affected a lizbeth three times a day for pain. External use only. 30 g 1 ondansetron (ZOFRAN) 4 mg tablet Take 4 mg by mouth every 8 hours as needed for Nausea or Vomiting. pantoprazole DR (PROTONIX) 40 mg tablet Take 40 mg by mouth daily. 5 potassium chloride SR (K-DUR) 10 mEq tablet Take 20 mEq by mouth three times daily. Take with a meal and a full glass of water. rivaroxaban (XARELTO) 10 mg tablet Take 10 mg by mouth at bedtime daily. spironolactone (ALDACTONE) 25 mg tablet Take one tablet by mouth twice daily . Take with food. 180 tablet 3 tiZANidine (ZANAFLEX) 4 mg tablet Take 4 mg by mouth at bedtime daily. 8 TRADJENTA 5 mg tablet Take 5 mg by mouth daily. No current facility-administered medications for this visit. Allergies: Bee sting [allergen tlg-uybly-nouqy bee], Ceftin [cefuroxime axetil], Cephalexin, Naproxen, Penicillins, Feldene [piroxicam], Haloperidol lactate, Hy drochlorothiazide, Latex, Quinapril, Abilify [aripiprazole], Hydrocodone, Sulfa (sulfonamide antibiotics), and Vicodin [hydrocodone-acetaminophen] Vitals: 05/08/21 0924 BP: (!) 141/77 Pulse: 90 Weight: (!) 150.6 kg (332 lb) Height: 170.2 cm (67") Body mass index is 52 kg/m. Physical Exam General: 55 y.o. male who is awake and alert and no acute distress. BMI 52 SKIN: Skin examination was unremarkable no mass or lesion appreciated no eviden ce of cellulitis. No evidence of skin cancers. EYES: Extraocular muscle mobility is intact. No conjunctival hemorrhage. EARS:The auricles were without deformity. External auditory canals are clear no evidence of cerumen fungus or bacterial infection. Tympanic membranes are with out effusion or retraction. No evidence of perforation. No cholesteatoma. NOSE: The nasal airway shows a straight septum without evidence of perforation o r significant crusting. There are no evidence of polypoid changes. The inferio r turbinate is not congested. There are no active bleeding sites. ORAL CAVITY: The oral cavity shows buccal surfaces are without evidence of liche noid changes or mucosal disease. No leukoplakia. The floor of mouth is without edema. Winchester's ducts and Stensen's ducts are patent with normal salivary annemarie w. The tongue is without mass or lesion. There is normal mobility and sensation . OROPHARYNX: The oropharynx shows normal mucosa. No significant postnasal drain age. Uvula is without edema. NECK: Neck was flat no adenopathy or thyromegaly. No parotid masses or submandi bular gland masses. Tracheostomy tube in excellent position. There less granul ation tissue and no evidence of infection Tracheoscopy through the tracheotomy was performed showing no evidence of trache itis. No bleeding. NEURO: Cranial nerves are intact bilaterally. Voice quality is excellent with s peech valve. PULMONARY: No airway distress. No stridor. No retractions. ASSESSMENT AND PLAN: Conor Robbins is doing well from a long-term tracheotomy standpoint for obst ructive sleep apnea. I personally would not recommend removal. He is certainly not ready for removal at this point as he has not been able to handle capping t rial. Would likely require hospitalization with sleep medicine for capping tria l and CPAP management prior to decannulation and then observation in the hospita l after decannulation AVER LETTER documented in this encounter Plan of Treatment Not on filedocumented as of this encounter Goals Goal Patient Associated Recent Progress Patient-Stat Aut hor Goal Type Problems ed? Weight Loss Exercise Yes Delaney Jauregui, RN Note: "Lose some weight and get more healthy" [facility] Cristina Jansen, DANNY Note: Get home to my dog documented as of this encounter Visit Diagnoses Diagnosis Morbid obesity with BMI of 50.0-59.9, a dult ([facility]) - Primary Morbid obesity Obstructive sleep apnea syndrome Obstructive sleep apnea (adult) ([facility]) Chronic respiratory failure with hypoxi a and hypercapnia ([facility]) Tracheostomy dependence ([facility]) Tracheostomy status documented in this encounter Additional Health Concerns Noted Time Assessment 03/08/2019 12:35 PM CDT PHQ-9 Depression Total Score: 0 05/07/2021 9:57 AM ENGRAVER LETTER A fall risk assessment has been complet ed for the patient 08/04/2020 11:41 AM ENGRAVER LETTER A Body Mass Index follow-up plan has be en documented for the patient 05/07/2021 9:56 AM ENGRAVER LETTER PHQ-2 Depression Total Score: 2 documented as of this encounter Care Teams Start Date End Date Biostatistics Professor Relationship Specialty 11/08/20 Jerod Canales MD PCP - General [address] Medicine [place], [place] [id number] 02/25/19 Dov Farr MD Pulmonary [address] [facility] Disease [facility] [address] [place] [address] 04/20/19 Pasha Sweet MD Otolaryngolo [address] [facility] [address] [place] [address] 08/27/19 Braden Covarrubias DO Vascular [address] [place] [address] documented as of this encounter
--- OUTSIDE RECORDS SUMMARY | 2021-06-11 13:52 | XMS REPORT | Encounter Summary ---
Author Author [facility] Organization [facility] Address Unknown Phone Unavailable Care Team Providers Care Heel Scourer Name Role Phone Dov Farr MD Unavailable Pasha Sweet MD Unavailable Braden Covarrubias DO Unavailable Jerod Canales MD PCP Reason for Visit * Reason Onset Date Comments Other 05/18/2021 Encounter Details Care Team Description [place] [address] [employer] [facility] [address] [place] [address] Other 05/18/2021 [facility] [address] [place] [address] Social History Date Tobacco Use Types Packs/Day Years Used Former Smoker Cigarettes 0.5 5 Smokeless Tobacco: Never Used Comments Alcohol Use Standard Drinks/Week No 0 (1 standard drink = 0.6 o z pure alcohol) Sex Assigned at Date Recorded Male 10/14/2019 10:40 AM CDT Date Recorded COVID-19 Exposure Response 05/08/2021 9:12 AM DEALER CARD ROOM In the last month, have you been [...] encounter Miscellaneous Notes * Telephone Encounter - Ariel Yost - 05/18/2021 8:19 AM DEALER CARD ROOM Calling to reach nurse. Trach is starting to smell bad they said ER CARD ROOM documented in this encounter Plan of Treatment [...] Depression Total Score: 0 05/07/2021 9:57 AM DEALER CARD ROOM A fall risk assessment has been complet ed for the patient 08/04/2020 11:41 AM DEALER CARD ROOM A Body Mass Index follow-up plan has be en documented for the patient 05/07/2021 9:56 AM DEALER CARD ROOM PHQ-2 Depression Total Score: 2 documented as of this encounter Care Teams Start Date End Date Heel Scourer Relationship Specialty 11/08/20 Jerod Canales MD PCP - General [address] Medicine [place], [place] [phone] 02/25/19 Dov Farr MD Pulmonary [address] [facility] Disease [facility] [address] [place] [address] 04/20/19 Pasha Sweet MD Otolaryngolo [address] [facility] [address] [place] [address] 08/27/19 Braden Covarrubias DO Vascular [address] [place] [address] documented as of this encounter
[2021-06-11 14:10] LABS: ABG BASE EXCESS 3.2 MMOL/L (-2.5-2.5); ABG OXYGEN SATURATION 96 % (94-100); ABG PCO2 42 MMHG (35-45); ABG PH 7.42 (7.37-7.43); ABG PO2 84 MMHG (79-93); ABG TCO2 29.1 MMOL/L (21.0-31.0); ALLENS TEST YES-POS; INSPIRED O2 3 L; PATIENT TEMP 36.2; VENTILATOR NO
--- NOTE | 2021-06-11 14:10 | ED Respiratory ---
General Chief Complaint: Respiratory Problems Stated Complaint: SOA;RAPID HEART BEAT;HIGH BP Nursing Triage Note: PT TO RM 9 WITH COMPLAINT OF SOA, COLD SWEATS, HEART RACING. STATES SYMPTOMS STARTED FRIDAY. PT HAS TRACHEA DUE TO SLEEP APNEA. Source: patient Exam Limitations: no limitations History of Present Illness Date Seen by Provider: Jun 11, 2021 Time Seen by Provider: 14:06 Initial Comments By private vehicle from local care home with shortness of breath, "cold sweats", palpitations since Friday. No fevers. Vaccinated against Covid. Has a tracheostomy which he has for "sleep apnea" he states Timing/Duration: constant Severity: moderate Associated Symptoms: cough, shortness of breath Allergies and Home Medications Allergies Coded Allergies: Penicillins (Verified Allergy, Unknown, 01/11/21) Sulfa (Sulfonamide Antibiotics) (Verified Allergy, Unknown, 01/11/21) acetaminophen (Verified Allergy, Unknown, 01/11/21) cefuroxime (Verified Allergy, Unknown, 01/11/21) cephalexin (Verified Allergy, Unknown, 01/11/21) hydrochlorothiazide (Verified Allergy, Unknown, 01/11/21) hydrocodone (Verified Allergy, Unknown, 01/11/21) naproxen (Verified Allergy, Unknown, 01/11/21) piroxicam (Verified Allergy, Unknown, 01/11/21) quinapril (Verified Allergy, Unknown, 01/11/21) Patient Home Medication List Home Medication List Reviewed: Yes Review of Systems Review of Systems Constitutional: see HPI, chills, diaphoresis EENTM: see HPI Respiratory: see HPI, cough Cardiovascular: no symptoms reported Genitourinary: no symptoms reported Musculoskeletal: no symptoms reported Skin: no symptoms reported Psychiatric/Neurological: No Symptoms Reported Hematologic/Lymphatic: No Symptoms Reported Immunological/Allergic: no symptoms reported Past Bjoamwv-Ophrfp-Krnlcw Hx Immunizations Up To Date Second COVID19 Vaccination Dhruv: DECEMBER 23 Seasonal Allergies Seasonal Allergies: Yes Past Medical History Surgery/Hospitalization HX: SX-TRACH, PMH-DM2, HYPERLIPIDEMIA, BIPOLAR, DEPRESSION, ANXIETY, COPD, HYPERTENSION, HYPOKALEMIA, GERD, Surgeries: Yes (TRACH FEB 2019, RIGHT KIDNEY REMOVAL, L ANKLE, R ANKLE, ) Appendectomy, Gallbladder, Orthopedic, Tracheostomy Respiratory: Yes Asthma Cardiac: Yes High Cholesterol, Hypertension Neurological: No Genitourinary: No Gastrointestinal: Yes Gastroesophageal Reflux Musculoskeletal: Yes Fractures Endocrine: Yes Diabetes, Insulin dep HEENT: No Cancer: No Psychosocial: Yes Anxiety, Bipolar, Depression Integumentary: No Blood Disorders: No Physical Exam Vital Signs - First Documented Capillary Refill : Less Than 3 Seconds Height: '" Weight: lbs. oz. kg; 50.00 BMI Method: General Appearance: WD/WN, no apparent distress, obese, other (Chronically ill appears much older than stated age. No distress. Heart rate is in the 80s sinus without ectopy. Blood pressure 145/96, oxygen saturation 97% on his baseline 4 L. Very talkative and jovial with us, certainly not a toxic appearance.) HEENT: PERRL/EOMI, normal ENT inspection Respiratory: no respiratory distress, no accessory muscle use Gastrointestinal: normal bowel sounds, non tender Extremities: normal range of motion, non-tender Neurologic/Psychiatric: alert, normal mood/affect, oriented x 3 Skin: normal color, warm/dry Focused Exam Lactate Level 06/11/21 14:00: Lactic Acid Level 1.59 Lactic Acid Level Laboratory Tests Test 06/11/21 14:00 Lactic Acid Level 1.59 MMOL/L (0.50-2.00) Progress/Results/Core Measures Suspected Sepsis SIRS Temperature: Pulse: 93 Respiratory Rate: 20 Laboratory Tests 06/11/21 14:00: White Blood Count 12.0H Blood Pressure 145 /86 Mean: 105 06/11/21 14:00: Lactic Acid Level 1.59 Laboratory Tests 06/11/21 14:00: Creatinine 1.59H, INR Comment 1.0, Platelet Count 296, Total Bilirubin 0.4 Results/Orders Lab Results Laboratory Tests Test 06/11/21 14:00 06/11/21 14:09 06/11/21 15:48 06/11/21 16:07 Range/Units White Blood Count 12.0 H 4.3-11.0 10^3/uL Red Blood Count 4.39 4.30-5.52 10^6/uL Hemoglobin 13.1 L 13.3-17.7 g/dL Hematocrit 40 40-54 % Mean Corpuscular Volume 92 80-99 fL Mean Corpuscular Hemoglobin 30 25-34 pg Mean Corpuscular Hemoglobin Concent 33 32-36 g/dL Red Cell Distribution Width 15.6 H 10.0-14.5 % Platelet Count 296 130-400 10^3/uL Mean Platelet Volume 9.6 9.0-12.2 fL Immature Granulocyte % (Auto) 1 % Neutrophils (%) (Auto) 65 42-75 % Lymphocytes (%) (Auto) 21 12-44 % Monocytes (%) (Auto) 9 0-12 % Eosinophils (%) (Auto) 4 0-10 % Basophils (%) (Auto) 1 0-10 % Neutrophils # (Auto) 7.8 1.8-7.8 10^3/uL Lymphocytes # (Auto) 2.5 1.0-4.0 10^3/uL Monocytes # (Auto) 1.1 H 0.0-1.0 10^3/uL Eosinophils # (Auto) 0.5 H 0.0-0.3 10^3/uL Basophils # (Auto) 0.1 0.0-0.1 10^3/uL Immature Granulocyte # (Auto) 0.1 0.0-0.1 10^3/uL Prothrombin Time 13.9 12.2-14.7 SEC INR Comment 1.0 0.8-1.4 Activated Partial Thromboplast Time 44 H 24-35 SEC Blood Gas Puncture Site L RADIAL Blood Gas Patient Temperature 36.2 Arterial Blood pH 7.42 7.37-7.43 Arterial Blood Partial Pressure CO2 42 35-45 MMHG Arterial Blood Partial Pressure O2 84 79-93 MMHG Arterial Blood HCO3 28 H 23-27 MMOL/L Arterial Blood Total CO2 29.1 21.0-31.0 MMOL/L Arterial Blood Oxygen Saturation 96 94-100 % Arterial Blood Base Excess 3.2 H -2.5-2.5 MMOL/L Jasper Test YES-POS Blood Gas Ventilator Setting NO Blood Gas Inspired Oxygen 3 L Sodium Level 136 135-145 MMOL/L Potassium Level 4.1 3.6-5.0 MMOL/L Chloride Level 99 98-107 MMOL/L Carbon Dioxide Level 27 21-32 MMOL/L Anion Gap 10 5-14 MMOL/L Blood Urea Nitrogen 18 7-18 MG/DL Creatinine 1.59 H 0.60-1.30 MG/DL Estimat Glomerular Filtration Rate 46 BUN/Creatinine Ratio 11 Glucose Level 140 H 70-105 MG/DL Lactic Acid Level 1.59 0.50-2.00 MMOL/L Calcium Level 9.2 8.5-10.1 MG/DL Corrected Calcium 8.8 8.5-10.1 MG/DL Total Bilirubin 0.4 0.1-1.0 MG/DL Aspartate Amino Transf (AST/SGOT) 17 5-34 U/L Alanine Aminotransferase (ALT/SGPT) 21 0-55 U/L Alkaline Phosphatase 115 40-136 U/L Troponin I < 0.028 < 0.028 <0.028 NG/ML B-Type Natriuretic Peptide 54.7 <100.0 PG/ML Total Protein 8.2 6.4-8.2 GM/DL Albumin 4.5 3.2-4.5 GM/DL Procalcitonin 0.20 H <0.10 NG/ML SARS-CoV-2 RNA (RT-PCR) Not Detected Not Detecte Urine Color YELLOW Urine Clarity CLEAR Urine pH 6.0 5-9 Urine Specific [place] 1.020 1.016-1.022 Urine Protein NEGATIVE NEGATIVE Urine Glucose (UA) 2+ H NEGATIVE Urine Ketones NEGATIVE NEGATIVE Urine Nitrite NEGATIVE NEGATIVE Urine Bilirubin NEGATIVE NEGATIVE Urine Urobilinogen 0.2 < = 1.0 MG/DL Urine Leukocyte Esterase NEGATIVE NEGATIVE Urine RBC (Auto) NEGATIVE NEGATIVE Urine RBC NONE /HPF Urine WBC RARE /HPF Urine Squamous Epithelial Cells NONE /HPF Urine Crystals NONE /LPF Urine Bacteria TRACE /HPF Urine Casts PRESENT /LPF Urine Hyaline Casts RARE /LPF Urine Granular Casts 0-2 H /LPF Urine Mucus NEGATIVE /LPF Urine Culture Indicated CULTURE PENDING My Orders Orders - BRITNEY SPENCER APRN Arterial Blood Gas (06/11/21 14:03) Cbc With Automated Diff (06/11/21 14:03) Comprehensive Metabolic Panel (06/11/21 14:03) Procalcitonin (Pct) (06/11/21 14:03) Troponin I Alvaro (06/11/21 14:03) Bnp Alvaro (06/11/21 14:03) Chest 1 View, Ap/Pa Only (06/11/21 14:03) Ed Iv/Invasive Line Start (06/11/21 14:03) Covid 19 Inhouse Test (06/11/21 14:03) Blood Culture (06/11/21 14:03) Sputum Culture (06/11/21 14:03) Urinalysis (06/11/21 14:03) Urine Culture (06/11/21 14:03) Protime With Inr (06/11/21 14:03) Partial Thromboplastin Time (06/11/21 14:03) Ekg Tracing (06/11/21 14:03) Vital Signs Adult Sepsis Patie Q15M (06/11/21 14:03) O2 (06/11/21 14:03) Remove Rings In Anticipation O (06/11/21 14:03) Lactic Acid Analyzer (06/11/21 14:03) Ekg Tracing (06/11/21 15:25) Troponin I Alvaro (06/11/21 16:35) Vital Signs/I&O 06/11/21 06/11/21 06/11/21 13:53 13:53 14:00 Temp 35.2 Pulse 93 Resp 20 B/P (MAP) 145/86 (105) Pulse Ox 96 O2 Delivery Trach Collar Trach Collar Trach Collar O2 Flow Rate 4.00 4.00 Capillary Refill : Less Than 3 Seconds Blood Pressure Mean: 105 Departure Communication (Admissions) 2018-doing fine. In light of his slightly elevated procalcitonin, chest x-ray findings of a questionable infiltrate versus atelectasis and his comorbidities I will go ahead and put him on some Levaquin. He states he normally takes Levaquin and does fine with it. NAME: STACY PATEL MED REC#: [id number] PT STATUS: REG ER : 1965 PHYSICIAN: BRITNEY SPENCER APRN ADMIT DATE: 06/11/21/ER Signed Date of Exam:06/11/21 CHEST 1 VIEW, AP/PA ONLY INDICATION: Shortness of air, rapid heart rate, and elevated blood pressure. TIME OF EXAM: 2:56 PM. COMPARISON: Correlation is made with the prior chest of 02/24/2021. FINDINGS: There is a tracheostomy tube with the tip above the daly. The heart is enlarged. The right hemidiaphragm is slightly obscured on this study. The possibility of some basilar infiltrate or atelectasis cannot be excluded. The left lung appears to be fairly clear. No effusion or pneumothorax. IMPRESSION: Cardiomegaly with possible right basilar infiltrate or atelectasis. Dictated by: Dictated on workstation # [id number] Dict: 06/11/21 1457 Trans: 06/11/21 1521 [id number] Interpreted by: CHARLA VALDES MD Electronically signed by: CHARLA VALDES MD 06/11/21 1521 Impression Primary Impression: Pneumonia Additional Impression: General symptom Disposition: HOME, SELF-CARE Condition: Stable Departure-Patient Inst. Decision time for Depature: 17:04 Referrals: [facility] (PCP) Primary Care Physician SHANNON BERNABE APRN (Family) Primary Care Physician Patient Instructions: General (DC), Community-Acquired Pneumonia in Adults Add. Discharge Instructions: 1. Return to ER for any concerns. Follow-up with your doctor next week. Take 1 Levaquin pill daily for the next 5 days. Your first dose was given in ER you will not need any more until tomorrow. All discharge instructions reviewed with patient and/or family. Voiced understanding. Scripts Levofloxacin (Levofloxacin) 500 Mg Tablet 500 MG PO DAILY, #4 TAB 0 Refills Prov: BRITNEY SPENCER APRN 06/11/21 BRITNEY SPENCER APRN Jun 11, 2021 14:10
[2021-06-11 14:12] LABS: BASOPHILS # (AUTO) 0.1 10^3/uL (0.0-0.1); BASOPHILS % (AUTO) 1 % (0-10); EOSINOPHILS # (AUTO) 0.5 10^3/uL (0.0-0.3); EOSINOPHILS % (AUTO) 4 % (0-10); HEMATOCRIT 40 % (40-54); HEMOGLOBIN 13.1 g/dL (13.3-17.7); LYMPHOCYTES # (AUTO) 2.5 10^3/uL (1.0-4.0); LYMPHOCYTES % (AUTO) 21 % (12-44); MEAN CORPUSCULAR HEMOGLOBIN 30 pg (25-34); MEAN CORPUSCULAR HGB CONC 33 g/dL (32-36); MEAN CORPUSCULAR VOLUME 92 fL (80-99); MEAN PLATELET VOLUME 9.6 fL (9.0-12.2); MONOCYTES # (AUTO) 1.1 10^3/uL (0.0-1.0); MONOCYTES % (AUTO) 9 % (0-12); NEUTROPHILS # (AUTO) 7.8 10^3/uL (1.8-7.8); NEUTROPHILS % (AUTO) 65 % (42-75); PLATELET COUNT 296 10^3/uL (130-400)
[2021-06-11 14:15] LABS: ALBUMIN 4.5 GM/DL (3.2-4.5)
[2021-06-11 14:16] LABS: CHLORIDE 99 MMOL/L (98-107); POTASSIUM 4.1 MMOL/L (3.6-5.0); SODIUM 136 MMOL/L (135-145)
[2021-06-11 14:17] LABS: CALCIUM 9.2 MG/DL (8.5-10.1)
[2021-06-11 14:18] LABS: GLUCOSE 140 MG/DL (70-105); TOTAL PROTEIN 8.2 GM/DL (6.4-8.2)
[2021-06-11 14:19] LABS: CARBON DIOXIDE 27 MMOL/L (21-32)
[2021-06-11 14:20] LABS: BILIRUBIN,TOTAL 0.4 MG/DL (0.1-1.0); PROTHROMBIN TIME PATIENT 13.9 SEC (12.2-14.7)
[2021-06-11 14:21] LABS: ALKALINE PHOSPHATASE 115 U/L (40-136)
[2021-06-11 14:22] LABS: CREATININE SERUM 1.59 MG/DL (0.60-1.30); GFR ESTIMATED 46
[2021-06-11 14:23] LABS: BUN/CREATININE RATIO 11
[2021-06-11 14:25] LABS: ALANINE AMINOTRANSFERASE 21 U/L (0-55)
--- NOTE | 2021-06-11 15:04 | Diagnostic Imaging Report ---
INDICATION: Shortness of air, rapid heart rate, and elevated blood pressure. TIME OF EXAM: 2:56 PM. COMPARISON: Correlation is made with the prior chest of 02/24/2021. FINDINGS: There is a tracheostomy tube with the tip above the daly. The heart is enlarged. The right hemidiaphragm is slightly obscured on this study. The possibility of some basilar infiltrate or atelectasis cannot be excluded. The left lung appears to be fairly clear. No effusion or pneumothorax. IMPRESSION: Cardiomegaly with possible right basilar infiltrate or atelectasis. Dictated by: Dictated on workstation # [id number]
[2021-06-11 15:53] LABS: BILIRUBIN,URINE NEGATIVE (NEGATIVE); CLARITY,URINE CLEAR; COLOR,URINE YELLOW; GLUCOSE, URINE (UA) 2+ (NEGATIVE); KETONES,URINE NEGATIVE (NEGATIVE); LEUKOCYTE ESTERASE ,URINE NEGATIVE (NEGATIVE); NITRITE,URINE NEGATIVE (NEGATIVE); PROTEIN,URINE NEGATIVE (NEGATIVE)
[2021-06-11 16:16] LABS: WBC,URINE RARE /HPF
[2021-06-11 16:17] LABS: BACTERIA,URINE TRACE /HPF; GRANULAR CASTS,URINE 0-2 /LPF; HYALINE CASTS, URINE RARE /LPF
[2021-06-11] MEDS ORDERED: LEVO500T81 PO (17:20)
[2021-06-11 17:40] VITALS: BP 134/82
== END 2021-06-11 17:41 | disposition home or self-care (01) ==
LOC: EDUNIT# 13:47 → ER 13:48
DX: J18.9 Pneumonia, unspecified organism (principal); J45.909 Unspecified asthma, uncomplicated; I10 Essential (primary) hypertension; E11.9 Type 2 diabetes mellitus without complications; E66.9 Obesity, unspecified; Z68.43 Body mass index [BMI] 50.0-59.9, adult; Z20.822 Contact with and (suspected) exposure to COVID-19
CPT/HCPCS: 36415; 71045; 80053; 81000; 82805; 83605; 83880; 84145; 84484; 85025; 85610; 85730; 87040; 87088; 87636; 93005

== ENCOUNTER 2021-07-01 13:26 | Emergency (ER) | payer MEDICARE, MEDICAID ==
[~2021-07-01 13:26] MED LIST: LEVO500T81 PO
--- OUTSIDE RECORDS SUMMARY | 2021-07-01 13:31 | XMS REPORT | Clinical Summary ---
Author Author [facility] Organization [facility] Address Unknown Phone Unavailable Care Team Providers Care Itinerant Teacher Assistant Name Role Phone Dov Farr MD Unavailable Pasha Sweet MD Unavailable Braden Covarrubias DO Unavailable Jerod Canales MD PCP Source Comments Some departments are not documenting in the electronic medical record. If you d o not see the information that you expected, contact Release of Information in [facility] Health Information Management department at [phone] for further assistan ce in locating additional records.[facility] Allergies Comments Active Allergy Reactions Severity Noted Date Tongue Twitching Aripiprazole SEE COMMENTS Low 02/04/2019 Allergen Sma-Vjajt-Osisv ANAPHYLAXIS High 03/14 Bee Cefuroxime Axetil ANAPHYLAXIS [...] to 1 affected area three times daily. Active Problems Problem Noted Date Anal fissure [...] the original. Weight loss strongly encouraged as longterm option. The benefits of weight loss in [...] of depression and was just discharged from [place] inpatient unit in [facility]. L ast Assessment & Plan: Formatting of [...] Pasha Sweet MD Worsening Symptoms 05/29/2021 Telephone Otolaryngology Pasha Sweet MD Other 05/18/2021 Telephone Otolaryngology Pasha Sweet MD Morbid obesity with BMI of 50.0-59.9, ad ult (HCC) (Primary Dx); Obstructive sleep apnea syndrome; Chronic respiratory failure with hypoxia and hypercapnia (HCC); Tracheostomy dependence (HCC) 05/08/2021 Office Visit Otolaryngology 05/08/2021 Low Vincent DO Anal fissure (Primary Dx) 05/07/2021 Office Visit Oncology 05/07/2021 Travel Pasha Sweet MD Home Health Patient Update 05/01/2021 Telephone Otolaryngology Sania Solis RN Leg Swelling (f/u call from [email or web address] note sent by pt today) 04/19/2021 Telephone Cardiology Pasha Sweet MD Other 04/05/2021 Telephone Otolaryngology from Last 3 Months Immunizations Name Administration [...] performed by Pasha Sweet Jr., MD at [facility] OR/[facility] Medical History Medical History Date Comments Hypertension Pneumonia Blood clot in vein Both Legs PAYAM (obstructive sleep apnea) no CPAP cannot tolera te On supplemental oxygen by nasal 2-2.5L/ NC during t and 3L/NC at HS cannula Anticoagulated Xarelto Asthma Chronic respiratory failure ([facility]) DM (diabetes mellitus) ([facility]) 2017 PONV (postoperative nausea and vomiting) Acid reflux Anxiety and depression Chronic kidney disease Rash of body abdominal rash Heart palpitations Edema of both lower extremities due to peripheral venous insufficiency DVT of leg (deep venous thrombosis) 2014 ([facility]) BMI 50.0-59.9, adult ([facility]) Tobacco abuse Former tobacco use Tachycardia [...] Comments Vital Sign 141/77 05/08/2021 9:24 AM CLOUD AUTOMATION TESTER Blood Pressure 90 05/08/2021 9:24 AM CLOUD AUTOMATION TESTER Pulse 36.2 C (97.1 F) 05/07/2021 9:49 AM CLOUD AUTOMATION TESTER Temperature 18 05/07/2021 9:49 AM CLOUD AUTOMATION TESTER Respiratory Rate 99% 05/07/2021 9:49 AM CLOUD AUTOMATION TESTER Oxygen Saturation - - Inhaled Oxygen Concentration 150.6 kg (332 lb) 05/08/2021 9:24 AM CLOUD AUTOMATION TESTER Weight 170.2 cm (5' 7") 05/08/2021 9:24 AM CLOUD AUTOMATION TESTER Height 52 05/08/2021 9:24 AM CLOUD AUTOMATION TESTER Body Mass Index Plan of Treatment Health Maintenance Due Date Last Done Comments HBA1C 1967 MEDICARE ANNUAL WELLNESS 1967 VISIT MICROALBUMIN 1967 HIV SCREENING 11/27/1982 DILATED EYE EXAM 11/27/1985 DTAP/TDAP VACCINES (1 - 11/27/1985 Tdap) FOOT EXAM 11/27/1985 HEPATITIS C SCREENING 11/27/1985 PHYSICAL (COMPREHENSIVE) 11/27/1985 EXAM COLORECTAL CANCER 11/27/2017 SCREENING SHINGLES RECOMBINANT 11/27/2017 [...] Plan / Dates Group Medicare MEDICARE MEDICARE [id number] 2005- [phone] [address] AND Present [address] [place] [address] Medicaid [employer] [place] [employer] [id number] 2019-P [address] resent [address] [place], [place] [id number] [facility]ILL[facility]/HO [id number] 03/22/2019- [address] Present [facility] /NURSING [place], [facility] [id number] Advance Directives Patient 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 Manager Cpa Explanation Type Date Recorded DPOA Advance 03/12/2019 [...] Dx Care Teams Start Date End Date Itinerant Teacher Assistant Relationship Specialty 11/08/20 Jerod Canales MD PCP - General Family [address] [facility] Medicine [place], [place] [address] 02/25/19 Dov Farr MD Pulmonary [address] [facility] Disease Ortho/Med [address] [place] [address] 04/20/19 Pasha Sweet MD Otolaryngolo [address] [facility] [place] [address] [place] [address] 08/27/19 Braden Covarrubias, DO Vascular [address] [place] [address]
--- OUTSIDE RECORDS SUMMARY | 2021-07-01 13:31 | XMS REPORT | Encounter Summary ---
Author Author [facility] Organization [facility] Address Unknown Phone Unavailable Care Team Providers Care Electrical Equipment Assembler Name Role Phone Dov Farr MD Unavailable Pasha Sweet MD Unavailable Braden Covarrubias DO Unavailable Jerod Canales MD PCP Reason for Visit * Reason Onset Date Comments Other 05/18/2021 Encounter Details Care Team Description [place] [id number] [employer] [facility] [place] [address] [place] [address] Other 05/18/2021 [facility] [address] [place] [address] Social History Date Tobacco Use Types Packs/Day Years Used Former Smoker Cigarettes 0.5 5 Smokeless Tobacco: Never Used Comments Alcohol Use Standard Drinks/Week No 0 (1 standard drink = 0.6 o z pure alcohol) Sex Assigned at Date Recorded Male 10/14/2019 10:40 AM CDT Date Recorded COVID-19 Exposure Response 05/08/2021 9:12 AM VALIDATION MANAGER In the last month, have you been [...] - Ariel Yost - 05/18/2021 8:19 AM VALIDATION MANAGER Calling to reach nurse. Trach is starting to smell bad they said DATION MANAGER documented in this encounter Plan of Treatment [...] Depression Total Score: 0 05/07/2021 9:57 AM VALIDATION MANAGER A fall risk assessment has been complet ed for the patient 08/04/2020 11:41 AM VALIDATION MANAGER A Body Mass Index follow-up plan has be en documented for the patient 05/07/2021 9:56 AM VALIDATION MANAGER PHQ-2 Depression Total Score: 2 documented as of this encounter Care Teams Start Date End Date Electrical Equipment Assembler Relationship Specialty 11/08/20 Jerod Canales MD PCP - General [address] Medicine [place], [place] [phone] 02/25/19 Dov Farr MD Pulmonary [address] [facility] Disease Ortho/Med [address] [place] [address] 04/20/19 Pasha Sweet MD Otolaryngolo [address] [facility] [place] [address] [place] [address] 08/27/19 Braden Covarrubias DO Vascular [address] [place] [address] documented as of this encounter
--- NOTE | 2021-07-01 14:11 | ED Abdominal Pain ---
General Chief Complaint: Abdominal/GI Problems Stated Complaint: STOMACH PAIN Source of Information: Patient Exam Limitations: No Limitations History of Present Illness Date Seen by Provider: Jul 01, 2021 Time Seen by Provider: 13:55 Initial Comments Patient is a 55-year-old male who presents to the emergency department today with a chief complaint of abdominal pain onset Friday, 4 days ago. Patient lives at an assisted living facility, [facility]. He states that the pain has been gradually increasing in severity. He is also constipated and states its been about 5 days since he has had a bowel movement. Last night the pain worsened, he is nauseous today. He denies fevers or chills. He has been a little short of breath with a mild cough. He is Covid vaccinated, booster in April. He denies chest pain. He states he has been passing gas. He has had prior abdominal surgeries to include right nephrectomy, cholecystectomy and appendectomy. He tells me he has never had a bowel obstruction. He states he has had prior colonoscopy but it has been years ago when he cannot remember a diagnosis after. He is status post tracheostomy for obstructive sleep apnea. Patient complains of feeling bloated. No urinary complaints. Chronic swelling in his bilateral lower extremity but he states it has been worse in the past. All other review of systems reviewed and negative except as stated. Timing/Duration: 4-5 Days Severity/Quality: Moderate, Cramping Location: LLQ Radiation: No Radiation Activities at Onset: None Associated Symptoms: Nausea/Vomiting Allergies and Home Medications Allergies Coded Allergies: Penicillins (Verified Allergy, Unknown, 01/11/21) Sulfa (Sulfonamide Antibiotics) (Verified Allergy, Unknown, 01/11/21) acetaminophen (Verified Allergy, Unknown, 01/11/21) cefuroxime (Verified Allergy, Unknown, 01/11/21) cephalexin (Verified Allergy, Unknown, 01/11/21) hydrochlorothiazide (Verified Allergy, Unknown, 01/11/21) hydrocodone (Verified Allergy, Unknown, 01/11/21) naproxen (Verified Allergy, Unknown, 01/11/21) piroxicam (Verified Allergy, Unknown, 01/11/21) quinapril (Verified Allergy, Unknown, 01/11/21) Patient Home Medication List Home Medication List Reviewed: Yes Levofloxacin (Levofloxacin) 500 Mg Tablet, 500 MG PO DAILY Prescribed by: BRITNEY SPENCER on 06/11/21 1720 Ondansetron (Ondansetron Odt) 8 Mg Tab.rapdis, 8 MG PO Q8H PRN for nausea Prescribed by: ROSA ISELA CLEVELAND on 07/01/21 1604 Tramadol HCl (Tramadol HCl) 50 Mg Tablet, 50 MG PO Q6H PRN for PAIN Prescribed by: ROSA ISELA CLEVELAND on 07/01/21 1605 Review of Systems Review of Systems Constitutional: see HPI EENTM: No Symptoms Reported Respiratory: Cough Cardiovascular: No Symptoms Reported Gastrointestinal: Abdomen Distended, Abdominal Pain, Constipated, Nausea Genitourinary: No Symptoms Reported Musculoskeletal: no symptoms reported Skin: no symptoms reported Psychiatric/Neurological: No Symptoms Reported All Other Systems Reviewed Negative Unless Noted: Yes Past Rldpmza-Bxskye-Gwopmm Hx Immunizations Up To Date First/Initial COVID19 Vaccinat: DECEMBER 23 Second COVID19 Vaccination Dhruv: DECEMBER 23 Third COVID19 Vaccination Date: DECEMBER 23 Seasonal Allergies Seasonal Allergies: Yes Past Medical History Surgery/Hospitalization HX: SX-TRACH, PMH-DM2, HYPERLIPIDEMIA, BIPOLAR, DEPRESSION, ANXIETY, COPD, HYPERTENSION, HYPOKALEMIA, GERD, Surgeries: Yes (TRACH FEB 2019, RIGHT KIDNEY REMOVAL, L ANKLE, R ANKLE, ) Appendectomy, Gallbladder, Orthopedic, Tracheostomy Respiratory: Yes Asthma Cardiac: Yes High Cholesterol, Hypertension Neurological: No Genitourinary: No Gastrointestinal: Yes Gastroesophageal Reflux Musculoskeletal: Yes Fractures Endocrine: Yes Diabetes, Insulin dep HEENT: No Cancer: No Psychosocial: Yes Anxiety, Bipolar, Depression Integumentary: No Blood Disorders: No Physical Exam Vital Signs Vital Signs - First Documented 07/01/21 13:44 Temp 36.9 Pulse 102 B/P (MAP) 150/95 (113) Pulse Ox 91 O2 Delivery Trach Collar Capillary Refill : Height/Weight/BMI Height: '" Weight: lbs. oz. kg; 50.00 BMI Method: General Appearance: WD/WN, no apparent distress HEENT: PERRL/EOMI, other (dry oral mucosa) Neck: other (tracheostomy) Cardiovascular: regular rate, rhythm Gastrointestinal: other (distended abdomen, diffusely tender, but most tenderness on the left. hyperactive BS on the right side of the abdomen) Extremities: normal range of motion, pedal edema (woody lymphedema bilateral LE) Neurologic/Psychiatric: no motor/sensory deficits, alert, normal mood/affect, oriented x 3 Skin: normal color, warm/dry Progress/Results/Core Measures Results/Orders Lab Results Laboratory Tests Test 07/01/21 14:21 07/01/21 14:28 07/01/21 15:06 Range/Units SARS-CoV-2 RNA (RT-PCR) Negative Negative White Blood Count 14.3 H 4.3-11.0 10^3/uL Red Blood Count 4.26 L 4.30-5.52 10^6/uL Hemoglobin 12.6 L 13.3-17.7 g/dL Hematocrit 39 L 40-54 % Mean Corpuscular Volume 92 80-99 fL Mean Corpuscular Hemoglobin 30 25-34 pg Mean Corpuscular Hemoglobin Concent 32 32-36 g/dL Red Cell Distribution Width 15.7 H 10.0-14.5 % Platelet Count 261 130-400 10^3/uL Mean Platelet Volume 9.1 9.0-12.2 fL Immature Granulocyte % (Auto) 1 % Neutrophils (%) (Auto) 74 42-75 % Lymphocytes (%) (Auto) 13 12-44 % Monocytes (%) (Auto) 10 0-12 % Eosinophils (%) (Auto) 2 0-10 % Basophils (%) (Auto) 0 0-10 % Neutrophils # (Auto) 10.6 H 1.8-7.8 10^3/uL Lymphocytes # (Auto) 1.8 1.0-4.0 10^3/uL Monocytes # (Auto) 1.5 H 0.0-1.0 10^3/uL Eosinophils # (Auto) 0.3 0.0-0.3 10^3/uL Basophils # (Auto) 0.0 0.0-0.1 10^3/uL Immature Granulocyte # (Auto) 0.1 0.0-0.1 10^3/uL Neutrophils % (Manual) 67 % Lymphocytes % (Manual) 17 % Monocytes % (Manual) 9 % Eosinophils % (Manual) 1 % Band Neutrophils 6 % Polychromasia SLIGHT Poikilocytosis SLIGHT Anisocytosis SLIGHT Microcytosis SLIGHT Macrocytosis SLIGHT Spherocytes SLIGHT Sodium Level 139 135-145 MMOL/L Potassium Level 4.1 3.6-5.0 MMOL/L Chloride Level 96 L 98-107 MMOL/L Carbon Dioxide Level 30 21-32 MMOL/L Anion Gap 13 5-14 MMOL/L Blood Urea Nitrogen 14 7-18 MG/DL Creatinine 1.10 0.60-1.30 MG/DL Estimat Glomerular Filtration Rate 70 BUN/Creatinine Ratio 13 Glucose Level 183 H 70-105 MG/DL Calcium Level 9.1 8.5-10.1 MG/DL Corrected Calcium 8.9 8.5-10.1 MG/DL Total Bilirubin 0.8 0.1-1.0 MG/DL Aspartate Amino Transf (AST/SGOT) 19 5-34 U/L Alanine Aminotransferase (ALT/SGPT) 22 0-55 U/L Alkaline Phosphatase 114 40-136 U/L Total Protein 8.0 6.4-8.2 GM/DL Albumin 4.2 3.2-4.5 GM/DL Lipase 150 H 8-78 U/L Urine Color YELLOW Urine Clarity CLEAR Urine pH 7.0 5-9 Urine Specific Dumas 1.010 L 1.016-1.022 Urine Protein NEGATIVE NEGATIVE Urine Glucose (UA) 3+ H NEGATIVE Urine Ketones NEGATIVE NEGATIVE Urine Nitrite NEGATIVE NEGATIVE Urine Bilirubin NEGATIVE NEGATIVE Urine Urobilinogen 1.0 < = 1.0 MG/DL Urine Leukocyte Esterase NEGATIVE NEGATIVE Urine RBC (Auto) TRACE-I H NEGATIVE Urine RBC NONE /HPF Urine WBC NONE /HPF Urine Squamous Epithelial Cells NONE /HPF Urine Renal Epithelial Cells NONE /HPF Urine Crystals NONE /LPF Urine Bacteria NEGATIVE /HPF Urine Casts NONE /LPF Urine Mucus NEGATIVE /LPF Urine Culture Indicated NO My Orders Orders - ROSA ISELA CLEVELAND MD Ed Iv/Invasive Line Start (07/01/21 14:06) Cbc With Automated Diff (07/01/21 14:06) Comprehensive Metabolic Panel (07/01/21 14:06) Ua Culture If Indicated (07/01/21 14:06) Fentanyl Inj (Sublimaze Injection) (07/01/21 14:15) Ondansetron Injection (Zofran Injectio (07/01/21 14:15) Ct Abdomen/Pelvis Wo (07/01/21 14:06) Covid 19 Inhouse Test (07/01/21 14:17) Isolation Central Supply Req (07/01/21 14:17) Manual Differential (07/01/21 14:28) Irrigation And Suction (07/01/21 14:32) Coronavirus Sars-Cov-2 So 2019 (07/01/21 14:21) Lipase (07/01/21 15:38) Medications Given in ED Current Medications Medications Dose Ordered Sig/Pauly Route Start Time Stop Time Status Last Admin Dose Admin Fentanyl Citrate 50 mcg ONCE ONCE IVP 07/01/21 14:15 07/01/21 14:16 DC 07/01/21 14:49 50 MCG Ondansetron HCl 4 mg ONCE ONCE IVP 07/01/21 14:15 07/01/21 14:16 DC 07/01/21 14:49 4 MG Vital Signs/I&O 07/01/21 13:44 Temp 36.9 Pulse 102 B/P (MAP) 150/95 (113) Pulse Ox 91 O2 Delivery Trach Collar Progress Progress Note : Time: 15:59 Progress Note Patient reexamined, states that he feels like his pain is little better as is his nausea. Findings on CT concerning for acute pancreatitis. He does have a mild leukocytosis. I initially did not order a lipase but that level is pending at this time. No evidence of urinary tract infection. No evidence of bowel obstruction. I did do a rectal exam to assess for fecal impaction, he had soft brown stool in the rectal vault, no masses were palpated, no blood. I talked to the patient about pain management and clear liquids for the next 12 hours or so. I will send him home with some nausea medicines as well. I have encouraged him to continue mag sulfate at home. Return precautions have been given to include fever, vomiting, inability to hold down medications. He verbalized understanding. All questions are sought and answered. Departure Impression Primary Impression: Abdominal pain Qualified Codes: R10.84 - Generalized abdominal pain Additional Impression: Acute pancreatitis Qualified Codes: K85.90 - Acute pancreatitis without necrosis or infection, unspecified Disposition: 01 HOME, SELF-CARE Condition: Stable Departure-Patient Inst. Decision time for Depature: 16:00 Referrals: [facility] (PCP) Primary Care Physician SHANNON BERNABE APRN (Family) Primary Care Physician Patient Instructions: Constipation, Adult (DC), Pancreatitis (DC) Add. Discharge Instructions: Continue stool softeners twice daily, such as Colace which you can get over-the- counter. I would also continue to dose the mag sulfate or mag citrate twice daily. Increase the fiber in your diet, increase water. You can eat green leafy vegetables and berries which help constipation as do sweet potatoes. Also warm apple juice or white grape juice can help with constipation. I have written you a prescription for nausea medicine and sent it to your pharmacy as well as a prescription for pain medicine. Take the pain medicine every 6 hours as needed for severe pain. This pain medication is a narcotic and may make you sleepy. It can also complicate constipation therefore it is important that you stay on the stool softeners daily. YOU WILL ALSO NEED TO QUARANTINE UNTIL YOU GET YOUR PCR COVID TEST RESULTS TOMORROW. Come back to the emergency room if you develop a fever, worsening pain or vomiting. Please follow-up with your primary care physician this week. Scripts Tramadol HCl (Tramadol HCl) 50 Mg Tablet 50 MG PO Q6H PRN for PAIN, #12 TAB 0 Refills Prov: ROSA ISELA CLEVELAND MD 07/01/21 Ondansetron (Ondansetron Odt) 8 Mg Tab.rapdis 8 MG PO Q8H PRN for nausea, #15 TAB Prov: ROSA ISELA CLEVELAND MD 07/01/21 Copy Copies To 1: TREVOR GLOVER KATHRYN M MD Jul 01, 2021 14:11
[2021-07-01] MEDS ORDERED: ONDANSETRON 4 MG/2 ML (SDV) Z0FRAN IVP ONE (14:15)
[2021-07-01] MEDS ORDERED: fentaNYL INJ 100 MCG/2 ML AMP IVP ONE (14:15)
[2021-07-01 14:36] LABS: BASOPHILS % (AUTO) 0 % (0-10); EOSINOPHILS # (AUTO) 0.3 10^3/uL (0.0-0.3); EOSINOPHILS % (AUTO) 2 % (0-10); HEMATOCRIT 39 % (40-54); HEMOGLOBIN 12.6 g/dL (13.3-17.7); LYMPHOCYTES # (AUTO) 1.8 10^3/uL (1.0-4.0); LYMPHOCYTES % (AUTO) 13 % (12-44); MEAN CORPUSCULAR HEMOGLOBIN 30 pg (25-34); MEAN CORPUSCULAR HGB CONC 32 g/dL (32-36); MEAN CORPUSCULAR VOLUME 92 fL (80-99); MEAN PLATELET VOLUME 9.1 fL (9.0-12.2); MONOCYTES # (AUTO) 1.5 10^3/uL (0.0-1.0); MONOCYTES % (AUTO) 10 % (0-12); NEUTROPHILS # (AUTO) 10.6 10^3/uL (1.8-7.8); NEUTROPHILS % (AUTO) 74 % (42-75); PLATELET COUNT 261 10^3/uL (130-400); WHITE BLOOD COUNT 14.3 10^3/uL (4.3-11.0)
[2021-07-01 14:46] LABS: ALBUMIN 4.2 GM/DL (3.2-4.5); POTASSIUM 4.1 MMOL/L (3.6-5.0)
[2021-07-01 14:47] LABS: CALCIUM 9.1 MG/DL (8.5-10.1)
[2021-07-01 14:50] LABS: BILIRUBIN,TOTAL 0.8 MG/DL (0.1-1.0)
[2021-07-01 14:52] LABS: CREATININE SERUM 1.1 MG/DL (0.60-1.30)
[2021-07-01 14:54] LABS: ANISOCYTOSIS SLIGHT; BAND NEUTROPHILS 6 %; EOSINOPHILS % (MANUAL) 1 %; LYMPHOCYTES % (MANUAL) 17 %; MICROCYTOSIS SLIGHT; MONOCYTES % (MANUAL) 9 %; NEUTROPHILS % (MANUAL) 67 %; POIKILOCYTOSIS SLIGHT; POLYCHROMASIA SLIGHT; SPHEROCYTES SLIGHT
[2021-07-01 15:27] LABS: BILIRUBIN,URINE NEGATIVE (NEGATIVE); CLARITY,URINE CLEAR; COLOR,URINE YELLOW; GLUCOSE, URINE (UA) 3+ (NEGATIVE); KETONES,URINE NEGATIVE (NEGATIVE); LEUKOCYTE ESTERASE ,URINE NEGATIVE (NEGATIVE); NITRITE,URINE NEGATIVE (NEGATIVE); PROTEIN,URINE NEGATIVE (NEGATIVE)
--- NOTE | 2021-07-01 15:34 | Diagnostic Imaging Report ---
PROCEDURE: CT abdomen and pelvis without contrast. TECHNIQUE: Multiple contiguous axial images were obtained through the abdomen and pelvis without the use of intravenous contrast. Auto Exposure Controls were utilized during the CT exam to meet ALARA standards for radiation dose reduction. INDICATION: Left upper quadrant pain. FINDINGS: The previous CT abdomen/pelvis exam of 11/10/2011 failed to show any sign of an acute abnormality. 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 There is considerable distortion of the peripancreatic fat about the body and tail of the pancreas. This does suggest edema/inflammation is most likely related to acute pancreatitis. Correlation with patient's pancreatic enzyme levels would be recommended. As noted on the prior exam, the liver is enlarged and there is fatty metamorphosis of the liver. Also as noted previously the gallbladder is surgically absent. The spleen, both adrenal glands and aorta and inferior vena cava show no sign of an acute abnormality. There is no pelvic mass or free fluid collection noted. The urinary bladder and prostate gland are grossly unremarkable. The appendix is not well-visualized but there are no indirect signs of acute appendicitis. The lung bases are clear. The bone windows are unremarkable for a fracture or for a destructive lesion. IMPRESSION: 1. The distortion of the peripancreatic fat about the body and tail of the pancreas does suggest acute pancreatitis. There is no pancreatic mass or pseudocyst identified. Correlation with the patient's pancreatic enzymes would be recommended. 2. There is no acute abnormality of the abdomen or pelvis noted otherwise. 3. As noted previously the right kidney is absent and there has been a prior cholecystectomy. Dictated by: Dictated on workstation # [id number]
[2021-07-01 15:35] LABS: BACTERIA,URINE NEGATIVE /HPF
[2021-07-01] MEDS ORDERED: ONDA8TAB13 PO (16:04)
[2021-07-01] MEDS ORDERED: TRM50T PO (16:04)
[2021-07-01 16:59] VITALS: BP 134/92
== END 2021-07-01 16:50 | disposition home or self-care (01) ==
LOC: EDUNIT# 13:26 → ER 13:28
DX: K85.90 Acute pancreatitis without necrosis or infection, unspecified (principal); J45.909 Unspecified asthma, uncomplicated; I10 Essential (primary) hypertension; E11.9 Type 2 diabetes mellitus without complications; Z20.822 Contact with and (suspected) exposure to COVID-19
CPT/HCPCS: 36415; 74176; 80053; 81000; 83690; 85007; 85027; 87635; 87636

== ENCOUNTER → 2021-08-10 | Outpatient (CLI) | payer MEDICARE, MEDICAID ==
[~2021-08-10] MED LIST changes: +ONDA8TAB13 PO; +TRM50T PO
[2021-08-10 09:20] LABS: ABG BASE EXCESS 1.6 MMOL/L (-2.5-2.5); ABG OXYGEN SATURATION 93 % (94-100); ABG PCO2 41 MMHG (35-45); ABG PH 7.41 (7.37-7.43); ABG PO2 63 MMHG (79-93); ABG TCO2 27.4 MMOL/L (21.0-31.0); ALLENS TEST YES-POS; INSPIRED O2 3 L; PATIENT TEMP 35.5; VENTILATOR NO
== END ==
LOC: LAB 08:36
DX: J96.12 Chronic respiratory failure with hypercapnia (principal); J96.11 Chronic respiratory failure with hypoxia
CPT/HCPCS: 36600; 82805